=== PATIENT | female | born 1960 | race Caucasian/White ===

== ENCOUNTER 2020-02-26 10:23 | Outpatient (CLI) | payer BC, SELFPAY ==
--- NOTE | ~2020-02-26 | MM_ITS ---
EXAMINATION: MM screening [facility] BI w sammy HISTORY: Screening mammogram TECHNIQUE: Craniocaudal and mediolateral oblique 3-D tomosynthesis images were obtained and synthetic 2-D images were generated. CAD analysis was submitted and interpreted. COMPARISON: 12/31/2018, 12/04/2017, 11/25/2016 BREAST PARENCHYMAL COMPOSITION: The breasts are extremely dense, which lowers the sensitivity of mamm ography. FINDINGS: RIGHT BREAST: Asymmetry is present in the subareolar aspect of the lower breast on the mediolateral o blique view. LEFT BREAST: There is no evidence of suspicious mass, calcification, or architectural distortion to s uggest malignancy. There has been no significant interval change. IMPRESSION: 1. Right breast asymmetry on the mediolateral oblique view. 2. Additional mammographic views and possible breast ultrasound are recommended. BI-RADS Category 0: Incomplete: Needs additional imaging evaluation. Reviewed, dictated and finalized at location A. IMPRESSION: 1. Right breast asymmetry on the mediolateral oblique view. 2. Additional mammographic views and possible breast ultrasound are recommended . BI-RADS Category 0: Incomplete: Needs additional imaging evaluation.
== END 2020-02-26 10:24 | disposition home or self-care (01) ==
LOC: ANHIMG 10:26
PROVIDERS: PCP Family Medicine; Visit Provider Nurse Practitioner Obstetrics & Gynecology
DX: Z12.31 Encounter for screening mammogram for malignant neoplasm of breast (principal); R92.8 Other abnormal and inconclusive findings on diagnostic imaging of breast
CPT/HCPCS: 77063; 77067

== ENCOUNTER → 2020-03-11 08:31 | Outpatient (CLI) | payer BC, SELFPAY ==
--- NOTE | ~2020-03-11 | MM_ITS ---
EXAMINATION: MM diagnostic mammo unilat RT HISTORY: Right breast subareolar mammographic asymmetry reported on screening MLO view of 02/26/2020 TECHNIQUE: Additional 3-D tomosynthesis images of the right breast were performed and synthetic 2-D i mages were generated. CAD analysis was submitted and interpreted. COMPARISON: 02/26/2020 bilateral digital screening mammogram FINDINGS: No reproducible mass or architectural distortion is evident in the area in question in the inferior subareolar area of the right breast as questioned on 02/26/2020 screening mammogram. There ar e scattered benign calcifications. IMPRESSION: 1. No mammographic evidence of malignancy 2. Routine mammographic screening is recommended 3. Due to the dense breast stroma, small masses may be obscured. Ultrasound may be of supplemental sc reening benefit depending upon physical examination and physician and patient preference. BI-RADS Category 2: Benign finding(s). Reviewed, dictated and finalized at location A. IMPRESSION: 1. No mammographic evidence of malignancy 2. Routine mammographic screening is recommended 3. Due to the dense breast stroma, small masses may be obscured. Ultrasound may be of supplemental screening benefit depending upon physical examination and p hysician and patient preference. BI-RADS Category 2: Benign finding(s).
== END ==
PROVIDERS: PCP Family Medicine; Visit Provider Nurse Practitioner Obstetrics & Gynecology
DX: R92.8 Other abnormal and inconclusive findings on diagnostic imaging of breast (principal)
CPT/HCPCS: 77065

== ENCOUNTER → 2020-03-13 13:28 | Outpatient (CLI) | payer BC, SELFPAY ==
--- NOTE | ~2020-03-13 | US_ITS ---
US breast RT complete DATE: 03/13/2020 13:47 INDICATION: Dense breast stroma on mammography TECHNIQUE: High-resolution ultrasound imaging COMPARISON: 03/11/2020 diagnostic right mammogram 02/26/2020, 12/31/2018, 12/04/2017 bilateral digital screening mammogram examinations FINDINGS: No suspicious mass, shadowing or other significant sonographic abnormality is detected. IMPRESSION: BI-RADS Category 1: Negative Recommendation: Routine mammographic screening and possible periodic screening ultrasound examination s as clinically appropriate Reviewed, dictated and finalized at Location A. Reviewed, dictated and finalized at location A. IMPRESSION: BI-RADS Category 1: Negative Recommendation: Routine mammographic screening and possible periodic screening ultrasound examinations as clinically appropriate
== END ==
PROVIDERS: Visit Provider Nurse Practitioner Obstetrics & Gynecology
DX: R92.8 Other abnormal and inconclusive findings on diagnostic imaging of breast (principal)
CPT/HCPCS: 76641

== ENCOUNTER → 2021-03-19 16:27 | Outpatient (CLI) | payer BC, SELFPAY ==
--- NOTE | ~2021-03-19 | MM_ITS ---
EXAMINATION: MM screening [facility] BI w sammy HISTORY: Screening TECHNIQUE: Craniocaudal and mediolateral oblique 3-D tomosynthesis images were obtained and synthetic 2-D images were generated. CAD analysis was submitted and interpreted. COMPARISON: Comparison to multiple prior studies sequentially, with oldest reviewed study dated 2016. BREAST PARENCHYMAL COMPOSITION: The breasts are extremely dense, which lowers the sensitivity of mamm ography. FINDINGS: There is no evidence of suspicious mass, calcification, or architectural distortion to sugg est malignancy in either breast. There has been no suspicious interval change. IMPRESSION: 1. No mammographic evidence of malignancy. 2. Recommend routine screening mammography in one year. BI-RADS Category 1: Negative Reviewed, dictated and finalized at location A.
== END ==
PROVIDERS: PCP Internal Medicine; Visit Provider Nurse Practitioner Obstetrics & Gynecology
DX: Z12.31 Encounter for screening mammogram for malignant neoplasm of breast (principal)
CPT/HCPCS: 77063; 77067

== ENCOUNTER 2022-04-02 14:35 | Outpatient (CLI) | payer BC, SELFPAY ==
--- NOTE | ~2022-04-02 | MM_ITS ---
EXAMINATION: MM screening [facility] BI w sammy HISTORY: Screening mammogram TECHNIQUE: Craniocaudal and mediolateral oblique 3-D tomosynthesis images were obtained and synthetic 2-D images were generated. CAD analysis was submitted and interpreted. COMPARISON: 03/2021 bilateral screening mammogram 03/11/2020 diagnostic right mammogram and complete right breast ultrasound 02/26/2020, 12/31/2018 bilateral screening mammogram examinations BREAST PARENCHYMAL COMPOSITION: The breasts are extremely dense, which lowers the sensitivity of mamm ography. FINDINGS: Again noted are scattered bilateral benign appearing rounded and punctate microcalcificatio ns. There is no evidence of suspicious mass, calcification, or architectural distortion to suggest ma lignancy in either breast. There has been no suspicious interval change. IMPRESSION: 1. No mammographic evidence of malignancy. 2. Recommend routine screening mammography in one year. BI-RADS Category 2: Benign finding(s). Reviewed, dictated and finalized at location A.
== END 2022-04-02 14:36 | disposition home or self-care (01) ==
PROVIDERS: PCP Internal Medicine; Visit Provider Nurse Practitioner Obstetrics & Gynecology
DX: Z12.31 Encounter for screening mammogram for malignant neoplasm of breast (principal)
CPT/HCPCS: 77063; 77067

== ENCOUNTER 2023-03-19 10:29 | Outpatient (CLI) | payer BC, SELFPAY ==
--- NOTE | 2023-03-22 17:02 | WPDHOLTEREM ---
Holter/Event Monitor Holter/Event Monitor Date of procedure: 03/19/23 Holter/Event Procedure: 48 Hr Holter Monitor Indications: Palpitations Conclusion: 1. 48 hour holter monitor on 03/19/23. 2. Underlying rhythm is sinus rhythm. HR range 44-122 bpm; average HR 72 bpm. HR at 44 bpm was at 01:06. 3. There are 12 premature supraventricular complexes and 8 supraventricular couplets. No supraventricular tachycardia. 4. No premature ventricular complexes. No ventricular tachycardia. 5. No sinoatrial or atrioventricular blocks. No significant pauses greater than 2 seconds. 6. No symptoms available for correlation.
== END 2023-03-19 10:30 | disposition home or self-care (01) ==
PROVIDERS: PCP Family Medicine; Visit Provider Nurse Practitioner Family
DX: R00.2 Palpitations (principal)
CPT/HCPCS: 93225; 93226

== ENCOUNTER 2023-06-26 11:33 | Outpatient (CLI) | payer BC, SELFPAY ==
--- NOTE | ~2023-06-26 | MM_ITS ---
EXAMINATION: MM screening [facility] BI w sammy HISTORY: Screening mammogram TECHNIQUE: Craniocaudal and mediolateral oblique 3-D tomosynthesis images were obtained and synthetic 2-D images were generated. CAD analysis was submitted and interpreted. COMPARISON: 04/02/2022, 03/2021 bilateral screening mammogram examinations 03/13/2020 complete right breast ultrasound 03/11/2020 diagnostic right mammogram 02/26/2020 bilateral screening mammogram BREAST PARENCHYMAL COMPOSITION: The breasts are extremely dense, which lowers the sensitivity of mamm ography. FINDINGS: There are scattered bilateral benign appearing calcifications. There is no evidence of susp icious mass, calcification, or architectural distortion to suggest malignancy in either breast. There has been no suspicious interval change. IMPRESSION: 1. No mammographic evidence of malignancy. 2. Recommend routine screening mammography in one year. BI-RADS Category 2: Benign finding(s). Reviewed, dictated and finalized at location B. 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
== END 2023-06-26 11:34 | disposition home or self-care (01) ==
PROVIDERS: PCP Family Medicine; Visit Provider Nurse Practitioner Family
DX: Z12.31 Encounter for screening mammogram for malignant neoplasm of breast (principal)
CPT/HCPCS: 77063; 77067

== ENCOUNTER 2024-07-12 14:15 | Outpatient (CLI) | payer MEDICARE, OTHER, SELFPAY ==
--- NOTE | ~2024-07-12 | MM_ITS ---
EXAMINATION: MM screening [facility] BI w sammy HISTORY: Screening TECHNIQUE: Craniocaudal and mediolateral oblique 3-D tomosynthesis images were obtained and synthetic 2-D images were generated. CAD analysis was submitted and interpreted. COMPARISON: Comparison to multiple prior studies sequentially, with oldest reviewed study dated 12/31. BREAST PARENCHYMAL COMPOSITION: Dense: The breasts are extremely dense, which lowers the sensitivity of mammography. FINDINGS: There is no evidence of suspicious mass, calcification, or architectural distortion to sugg est malignancy in either breast. There has been no suspicious interval change. IMPRESSION: 1. No mammographic evidence of malignancy. 2. Recommend routine screening mammography in one year. BI-RADS Category 1: Negative Reviewed, dictated and finalized at location B. ICATIONS ARCHITECT
== END 2024-07-12 14:16 | disposition home or self-care (01) ==
LOC: ANHIMG 14:18
PROVIDERS: PCP Nurse Practitioner Family; Visit Provider Nurse Practitioner Family
DX: Z12.31 Encounter for screening mammogram for malignant neoplasm of breast (principal)
CPT/HCPCS: 77063; 77067

== ENCOUNTER 2024-09-05 08:50 | Outpatient (CLI) | payer MEDICARE, OTHER, SELFPAY ==
--- NOTE | ~2024-09-05 | XR_ITS ---
EXAMINATION: XR hip RT min 2V DATE: 09/05/2024 09:17 INDICATION: Right hip pain. Fall. TECHNIQUE: 2 views of right hip were obtained. COMPARISON: None. FINDINGS: Alignment is normal. No fracture. There is severe lumbar facet joint osteoarthritis. There is mild right hip osteoarthritis with small loose body. IMPRESSION: 1. Mild right hip osteoarthritis with small loose body. Reviewed, dictated and finalized at location B. 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
--- NOTE | ~2024-09-05 | XR_ITS ---
Lumbosacral Spine: AP and lateral views Clinical History: Pain Findings: The normal lordotic curve is maintained. No fracture or sublocation seen. There is mild to moderate degenerative disc narrowing at L1-L2. There is severe facet arthropathy throughout the lumba r spine. The sacroiliac joints are normally outlined. Impression: Severe facet arthropathy throughout the lumbar spine. Reviewed, dictated and finalized at location . 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
== END 2024-09-05 08:51 | disposition home or self-care (01) ==
LOC: MICIMG 08:52
PROVIDERS: PCP Nurse Practitioner Family; Visit Provider Nurse Practitioner Family
DX: M16.11 Unilateral primary osteoarthritis, right hip (principal); M24.051 Loose body in right hip; W19.XXXA Unspecified fall, initial encounter
CPT/HCPCS: 72100; 73502

== ENCOUNTER 2024-12-11 09:37 | Emergency (ER) | payer MEDICARE, OTHER, SELFPAY ==
--- NOTE | ~2024-12-11 | XR_ITS ---
XR ankle RT min 3V Ordering provider: Andres Shukla MD History: . trauma, right ankle pain, lateral swelling . Comparison: None. FINDINGS: BONES: No acute fracture or dislocation. JOINT SPACES: Normal. SOFT TISSUES: Soft tissue swelling over the lateral malleolus. IMPRESSION: No acute osseous abnormality of the right ankle. Reviewed, dictated and finalized at location A.
--- NOTE | ~2024-12-11 | XR_ITS ---
XR toe 1st LT min 2V Ordering provider: Andres Shukla MD History: . trauma, swelling, pain . Comparison: None. FINDINGS: BONES: Fracture at the base of the proximal phalanx of the left big toe is noted medially. JOINT SPACES: Osteoarthritic changes of the first metatarsophalangeal joint. SOFT TISSUES: Soft tissue swelling is seen at the area of the metatarsophalangeal joint. IMPRESSION: Chip fracture at the base of the proximal phalanx of the left big toe. Reviewed, dictated and finalized at location A.
[2024-12-11 09:42] VITALS: BP 104/65; PULSE 72; RESP 18; TEMP 36.6; O2SAT 100
--- OUTSIDE RECORDS SUMMARY | 2024-12-11 10:31 | XMS_ITS | Data Portability ---
Author Organization [place] [facility],, Mariely lopez Address [address] [place] [address] Assessment No assessment recorded. Plan of Treatment Reminders Order Date Submit Date Provider Last Modified By Organization Details Last Modified Time Details Appointments None recorde d. Lab allergy test, skin 2017 018 roge [facility], [address], [place], [address], 13:00:18 Referral None recorde d. Procedures None recorde d. Surgeries None recorde d. Imaging None recorde d. Medication Orders None recorde d. Patient TargetsNo targets recorded. Patient Instructions Encounter Date Encounter Id Patient Instructions Last Modified By Organization Details Last Modified Time 07/02/2018 [id number] rhinitis: care instructions [email or web address] Not available 07/02/2018 11:16:31 . [email or web address] Not available 11:16:30 07/30/2018 [id number] rhinitis: care instructions [email or web address] Not available 07/30/2018 14:18:26 Reason for Referral None Reported. Results Created Date Observation Date Name Description Value Unit Range Abnormal Flag Note LastModifiedBy Organization Detail LastModifiedTime 07/02/20 18 07/02/2018 aller gy test, skin Mites positi ve Not Available [facility] [address], [place], [address], 07/02/2018 09:50:42 07/02/20 18 07/02/2018 aller gy test, skin Mold positi ve Not Available [facility] [address], [place], [address], 07/02/2018 09:50:42 07/02/20 18 07/02/2018 aller gy test, skin Cat positi ve Not Available [facility] [address], [place], [address], 07/02/2018 09:50:42 07/02/20 18 07/02/2018 aller gy test, skin Dog positi ve Not Available [facility] [address], [place], [address], 07/02/2018 09:50:42 07/02/20 18 07/02/2018 aller gy test, skin Trees positi ve Not Available [facility] [address], [place], [address], 07/02/2018 09:50:42 07/02/20 18 07/02/2018 aller gy test, skin Grass positi ve Not Available [facility] [address], [place], [address], 07/02/2018 09:50:42 07/02/20 18 07/02/2018 aller gy test, skin Ragweed negati ve Not Available [facility] [address], [place], [address], 07/02/2018 09:50:42 Result Notes None recorded. Problems Name Problem SNOMED Code Status Onset Date Resolution Date Notes Provider Name and Address Organization Details Recorded Time Osteoporosis 12800959 Active 2017 Hood baires MD [address], [place], [address], [place] [facility], 8 09:56:02 Chronic rhinitis 10338316 Active 2017 Hood baires MD [address], [place], [address], [place] [facility], 8 09:56:05 Problem Notes None recorded. Medical Equipment None Reported. Allergies No known drug allergies Medications Name Sig Start Date Stop Date Status Note LastModified by Organization Details LastModified Time alprazolam 0.5 mg tablet active Not Available Not Available No t Available trazodone 100 mg tablet active Not Available Not Available No t Available Vitamin D2 1,250 mcg (50,000 unit) capsule active Not Available Not Available Not Available fluticasone propionate 50 mcg/actuation nasal spray,suspensi on active Not Available Not Available Not Available risedronate 150 mg tablet 2017 completed Not Available Not Available Not Available Forteo 20 mcg/dose (560 mcg/2.24 mL) subcutaneous pen injector 2017 completed Not Available Not Available Not Available Clenpiq 10 mg-3.5 gram-12 gram/160 mL oral solution active Not Available Not Availabl e Not Available Vitals Date Recorded Body height Body mass index (BMI) Body weight Body temperature Systolic blood pressure Diastolic blood pressure Provider Name and Address Organization Details Last Updated DateTime 8 158.75 cm 16.6 kg/m2 88435.5 g 98.1 [degF] 98 mm[Hg] 62 mm[Hg] shira luna [place] [facility], 8 09:47:49 Date Recorded Body height Body mass index (BMI) Body weight Body temperature Systolic blood pressure Diastolic blood pressure Provider Name and Address Organization Details Last Updated DateTime 8 158.75 cm 17.1 kg/m2 93213.2 8 g 98 [degF] 100 mm[Hg] 62 mm[Hg] shira luna [place] [facility], 8 13:03:28 Social History Question Answer Notes LastModified by Organizat ion Details LastModified Time Tobacco Smoking Status Former Smoker shira dickerson [place] [facility], 07/02/2018 09:48:06 What Was The Date Of Your Most Recent Tobacco Screening? 07/02/2018 Information n ot available 03/09/2019 How Many Years Have You Smoked Tobacco? 5 [email or web address] Information not available 07/02/2018 Sex: Unknown Functional Status None recorded. Mental Status None recorded. Family History Nothing Reported. Medical History Condition Response Coronary Artery Disease N Gout N Kidney Stones N Hyperthyroidism N Hypothyroidism N Depression N COPD N Stress N Anxiety Disorder N Diabetes N Arthritis N Tuberculosis N Cancer N Stroke N Diverticulitis N Asthma N Allergies N GERD/Reflux N High Cholesterol N Liver Disease N Heart Disease N Pulmonary Embolism N Fibromyalgia N Hypertension N Osteoporosis N Kidney Disease N Gynecological HistoryNo gynecological history recorded. Obstetrics History GPAL:G 0 P 0 0 0 0 Past Encounters Encounter ID Performer Location Encounter Start Date Encounter Closed Date Diagnosis/Indication Diagnosis SNOMED-CT Code Diagnosis ICD10 Code Diagnosis Note [id number] Hood treviño MD OFFICE [address] [place] [phone] 07/02/2018 09:35:11 07/02/2018 12:07:33 Chronic rhinitis 51365830 J31.0 The patient's symptoms are compatible with allergic rhinitis. Skin testing confirmed the allergic nature of this condition. The three fundamenta l therapeuti c strategies were discussed with the patient. These include allergen avoidance, pharmacolo gic interventi on with intranasal corticoste roids, antihistam jenna, and potentiall y intranasal antihistam jenna. Finally allergy immunother apy was discussed. The patient was started on {{ Nasacort and Xyzal# Riley nase Coldstream ex Rhinoco rt Nasacort}} .will return in a month to evaluate whether she should start on AI. [id number] Hood treviño MD OFFICE [address] [place] [id number] 07/30/2018 12:32:06 07/30/2018 13:24:18 Chronic rhinitis 50408922 J31.0 The patient will begin on allergy immunother apy. The benefits and potential side effects were explained. Patient was given a consent form to fill out. They will begin on the IT in the near future. Health Concerns Section Related Observation LastModified by Organization Detai ls LastModified Time None Recorded Concern Status LastModified by Organization Details LastModified Time None Recorded Advance Directives Directive None Recorded Payers Encounter Date Sequence Insurance Name Policy Number Policy Hollingsworth Covered Member ID Hollingsworth Member ID Guarantor Name 07/02/2018 1 [facility] [id number] Barb Piper [id number] Barb Piper 07/30/2018 1 [facility] [id number] Barb Piper [id number] Barb Piper Notes Date Note Type Note Provider Name and Address Organization Details Recorded Time 07/02/2018 text/html Barb is a delightful 57-year-old woman who comes in with a long history of sinus congestion and pressure. This is perennial in nature and does not appear to have any seasonal exacerbations. She has tried some antihistamines and short courses of nasal steroids with minimal symptoms. She had been allergy tested in the past but was never placed on allergy immunotherapy. She had a CT of her sinuses which has been negative. She comes in wondering what she can do. She has not had any problems with recurring sinus infections. MD [address], [place], [address], [place] [facility], 07/02/2018 13:00:49 07/30/2018 text/html Barb comes in f or follow-up of her allergic rhinitis. She has had a mediocre response to the Nasacort and Xyzal. In fact is Eisel made her very sleepy. She would like to begin on allergy immunotherapy. MD [address], [place], [address], [place] [facility], 07/30/2018 14:18:53 OBGyn Episode No OBEpisode recorded.
--- OUTSIDE RECORDS SUMMARY | 2024-12-11 10:31 | XMS_ITS | Referral Summary ---
Author Organization [facility] Address [address] [place] [address] Care Team Providers Care Industrial Engineering Name Role Phone Hazel Blanc NP Primary Care Provider [phone] Encounters Date Type Department Care Team Description 09/18/2024 10:00 AM TAX ATTORNEY Infusion [facility] Injection Therapy [address] [facility] 5th [place] [address] [place] [address] Age-related osteoporosis without current pathological fracture (Primary Dx) from Last 3 Months Allergies Active Allergy Reactions Criticality Noted Date Comments Clindamycin Diarrhea Low 07/04/2019 Succinylcholine Other (See comments) Low 05/07/2020 Medications ALPRAZolam (XANAX) 0.5 mg tablet 10/12/2018 Active traZODone (DESYREL) 100 mg tablet 10/12/2018 Active calcium carbonate-vitam in D3 (CALTRATE 600 + D) 1500 mg (600 mg elemental) -400 units per tablet Take 1 tablet by mouth daily 600mg+D 800 units dailly Active fexofenadine (ERIC) 180 mg tablet Take 1 tablet (180 mg total) by mouth daily Active denosumab (PROLIA) 60 mg/mL syringe Inject 1 mL (60 mg total) under the skin every 6 (six) months Active ergocalciferol (VITAMIN D) 50,000 unit capsuleIndicati ons:History of vitamin D deficiency TAKE ONE CAPSULE BY MOUTH EVERY 30 DAYS 12 capsule 10/08/2023 Active Active Problems Problem Noted Date Diagnosed Date Chronic rhinitis 07/02/2018 Osteoporosis 07/02/2018 Social History Tobacco Use Types Packs/Day Years Used Date Smoking Tobacco: Former Smokeless Tobacco: Never Alcohol Use Standard Drinks/Week Comments Never 0 (1 standard drink = 0.6 oz pur e alcohol) AUDIT-C Answer Date Recorded Frequency of Alcohol Consumption Never 09/11/2019 Average Number of Drinks Not on file 020 Frequency of Binge Drinking Not on file 08/17 Comments Unknown Sex and Gender Information Value Date Recorded Sex Assigned at Not on file Legal Sex Female 11:53 AM TAX ATTORNEY Gender Identity Female 06/13/2021 4:46 PM CDT Sexual Orientation Straight 02/17/2022 10 :07 AM CDT Last Filed Vital Signs Vital Sign Reading Time Taken Comments Blood Pressure 103/69 05/09/2019 9:45 AM CDT Pulse 71 05/09/2019 9:45 AM CDT Temperature 36.9 C (98.4 F) 10/25/2018 11:16 AM CDT Respiratory Rate - - Oxygen Saturation - - Inhaled Oxygen Concentration - - Weight 38.6 kg (85 lb) 08/02/2024 10:48 AM TAX ATTORNEY Height 158.1 cm (5' 2.25 ) 08/02/2024 10:[address] Body Mass Index 15.42 08/02/2024 10:48 AM TAX ATTORNEY Plan of Treatment Not on file Procedures Procedure Name Priority Date/Time Associated Diagnosis Comments DEXA TBS AXIAL SKELETON BONE DENSITY 1 OR MORE SITES Schedule Routine, Read Routine (OP Routine) 08/02/2024 10:47 AM TAX ATTORNEY History of vitamin D deficiency from Last 3 Months or Most Recently Relevant to Health Maintenance Results * Dexa TBS Axial Skeleton Bone Density 1 or more sites (08/02/2024 10:47 AM TAX ATTORNEY) Anatomical Region Laterality Modality Wrist, Body N/A Radiographic Viridiana ging Narrative 08/02/2024 4:42 PM TAX ATTORNEY Patient Name: Barb Piper Date of : 1960 Date of scan: 08/02/2024 Bone mineral density was performed on a [employer] Discovery Densitometer. Based on machine cross-calibration and precision studies the least significant changes of this densitometer is 0.024 g/cm2 at the spine, 0.020 g/cm2 at the total proximal femur, and 0.014g/cm2 at the forearm. HISTORY: This is a 63 y.o. postmenopausal female with a history of osteoporosis. She reports that she has quit smoking. She has never used smokeless tobacco. Currently on treatment with calcium, vitamin D, and denosumab (Prolia) and previously treated with risedronate (Actonel) and teriparatide (Forteo). INDICATIONS: Menopause status, treatment monitoring, and history of osteoporosis. FINDINGS: BONE MINERAL DENSITY OF THE LUMBAR SPINE Bone Mineral Density (BMD) of the lumbar spine was measured from L1-L4 and the average density was calculated to be 1.225 gm/cm2. This corresponds to a T-score (standard deviations from the mean of young adults) of 1.6. When compared to the previous study of 07/23/2023 there has been a -0.026 gm/cm (-2.1%) decrease in bone density that is considered significant. BONE MINERAL DENSITY OF THE PROXIMAL FEMUR Bone Mineral Density (BMD) of the left hip total was found to be 0.662 gm/cm2. This corresponds to a T-score standard deviations from the mean of young adults of -2.3. Femoral neck is 0.571 gm/cm2 with a T-score (standard deviations from the mean of young adults) of -2.5. When compared to the previous study of 07/23/2023 there has been a -0.024 gm/cm (-3.4%) decrease in bone density that is considered significant. BONE MINERAL DENSITY OF THE FOREARM Bone Mineral density (BMD) of the left proximal 1/3 of the radius measures 0.622 gm/cm2. This corresponds to a T-score (standard deviations from the mean of young adults) of -1.2. When compared to the previous study of 07/23/2023 there has been no significant changes in bone density. A forearm bone density study was performed in addition to the routine study due to the need to provide a comparison to the previous exam. SUMMARY: Bone mineral density shows evidence of osteoporosis and marked increase risk of fracture. There has been a significant decrease in bone density since previous measurement. The lumbar spine Trabecular Bone Score is 1.415 which suggests normal bone microarchitecture, compared to the general population. Final decisions regarding diagnostic or therapeutic recommendations should include BMD, TBS, additional clinical risk factors as well the clinical context of the patient. Please see attached TBS results for further details. ADDITIONAL COMMENTS: Postmenopausal Women and Men Over 50: Diagnostic criteria: Osteoporosis: BMD at or below -2.5 T-score; Osteopenia (low bone mass): BMD between -1.0 and -2.5 T-score. If the patient has a history of a fragility fracture, a fracture that occurred with trauma equivalent to a fall from a standing position or less, then the diagnosis is osteoporosis regardless of bone density. The history and data sections of the bone mineral density scan were prepared by Carine Day)([facility])who is accredited by the International Society of Clinical Densitometry. The overall patient assessment and scan interpretation were performed by Maribeth Garcia M.D. who is certified by the International Society of Clinical Densitometry. [id number] Maribeth Garcia MD IM DXA PROCEDURES Final Resu lt from Last 3 Months or Most Recently Relevant to Health Maintenance Insurance MEDICARE [facility] [place] [address] [facility] [place] MEDICARE [employer] [facility] [place] Care Teams Industrial Engineering Relationship Specialty Start Date End Date Hazel Blanc NP [address] [place] [address] PCP - General Nurse Practitioner 08/02/24
--- OUTSIDE RECORDS SUMMARY | 2024-12-11 10:31 | XMS_ITS | Encounter Summary ---
Author Organization [facility] Address [address] [place] [address] Phone Care Team Providers Care Panel Installer Name Role Phone Jared Amezcua MD Primary Care Provider [phone] Monie Finley MD Primary Care Provider [phone] Moises Blunt DO Primary Care Provider [phone] Hazel Blanc NP Primary Care Provider [phone] Encounter Details Date Type Department Care Team (Late st Contact Info) Description 06/15/2019 Treatment [facility] [address] [facility] [address] [place] [address] Monie Finley MD [address] [place] [address] Osteoporosis, unspecified osteoporosis type, unspecified pathological fracture presence (Primary Dx) Social History Tobacco Use Types Packs/Day Years Used Date Smoking Tobacco: Former Smokeless Tobacco: Never Alcohol Use Standard Drinks/Week Comments Yes 0 (1 standard drink = 0.6 oz pur e alcohol) Comments Unknown Sex and Gender Information Value Date Recorded Sex Assigned at Not on file Legal Sex Female 11:53 AM ACID CONDENSER Gender Identity Female 06/13/2021 4:46 PM CDT Sexual Orientation Straight 02/17/2022 10 :07 AM CDT documented as of this encounter Plan of Treatment Not on file documented as of this encounter Visit Diagnoses Diagnosis Osteoporosis, unspecified osteoporosis type, unspecified pathological fracture presence- Primary documented in this encounter Orders Appointment Requests Count Last Ordered Date Fi rst Ordered Date INFUSION APPT REQUEST 30 MIN 1 07/04/2019 documented in this encounter Care Teams Panel Installer Relationship Specialty Start Date End Date Jared Amezcua MD [address] [place] [address] PCP - General Family Medicine 06/30/18 07/03/19 Monie Finley MD [address] [place] [address] PCP - General 07/04/19 07/02/22 Moises Blunt DO [address] [place] [address] PCP - General Internal Medicine 07/03/22 08/01/24 Hazel Blanc NP [address] [facility] [address] [facility] [address] [place] [address] PCP - General Nurse Practitioner 08/02/24 documented as of this encounter
--- OUTSIDE RECORDS SUMMARY | 2024-12-11 10:31 | XMS_ITS | Clinical Summary ---
Author Organization [facility] Address [address] [place] [address] Care Team Providers Care Landscape Designer Name Role Phone Hazel Blanc NP Primary Care Provider Allergies Active Allergy Reactions Criticality Noted Date [...] Diagnosed Date Chronic rhinitis 07/02/2018 Osteoporosis 07/02/2018 Encounters Date Type Department Care Team Description 09/18/2024 10:00 AM DRUPAL PROGRAMMER Infusion [facility] Injection Therapy [address] [facility] 5th [place] [address] [place] [address] Age-related osteoporosis without current pathological fracture (Primary Dx) from Last 3 Months Family History Medical History Relation Name Comments No Known Problems Mother Hip fracture Neg Hx Osteoporosis Neg Hx Relation Name Status Comments Mother Social History Tobacco Use Types Packs/Day Years [...] on file Legal Sex Female 11:53 AM DRUPAL PROGRAMMER Gender Identity Female 06/13/2021 4:46 PM CDT Sexual Orientation Straight 02/17/2022 10 :07 AM CDT Obstetrics History Last Filed Vital Signs Vital Sign Reading Time Taken Comments Blood Pressure 103/69 05/09/2019 9:45 AM CDT Pulse 71 05/09/2019 9:45 AM CDT Temperature 36.9 C (98.4 F) 10/25/2018 11:16 AM CDT Respiratory Rate - - Oxygen Saturation - - Inhaled Oxygen Concentration - - Weight 38.6 kg (85 lb) 08/02/2024 10:48 AM DRUPAL PROGRAMMER Height 158.1 cm (5' 2.25 ) 08/02/2024 10:[address] Body Mass Index 15.42 08/02/2024 10:48 AM DRUPAL PROGRAMMER Plan of Treatment Health Maintenance Due Date Last Done Comments Colon Cancer Screening-Colonoscopy 1960 Depression Screening 1960 Fall Risk Assessment 1960 Hepatitis C Screening 1960 DTaP/Tdap/Td Vaccine (1 - Tdap) 1969 Hepatitis B Screening 1976 Pneumococcal vaccine 65+ (1 of 1 - PCV) 2008 Zoster Vaccine (1 of 2) 2008 Breast Cancer Screening-Mammogram 04/02/2023 04/02/2022, 03/20/2021, 02/26/2020 Well Visit 65+ 2023 Influenza Vaccine (Season Ended) 2025 05/25/20 19 Osteoporosis Screening-Bone Density Scan 08/02/2026 08/02/2024, 07/23/2023, 07/03/2022, Additional history exists Procedures Procedure Name Priority Date/Time Associated Diagnosis Comments DEXA TBS AXIAL SKELETON BONE DENSITY 1 OR MORE SITES Schedule Routine, Read Routine (OP Routine) 08/02/2024 10:47 AM DRUPAL PROGRAMMER History of vitamin D deficiency from Last 3 Months or Most Recently Relevant to Health Maintenance Results * Dexa TBS Axial Skeleton Bone Density 1 or more sites (08/02/2024 10:47 AM DRUPAL PROGRAMMER) Anatomical Region Laterality Modality Wrist, Body N/A Radiographic Viridiana ging Narrative 08/02/2024 4:42 PM DRUPAL PROGRAMMER Patient Name: Barb Piper Date of : 1960 Date of scan: 08/02/2024 Bone mineral density was performed on a [employer] Discovery Densitometer. Based on machine cross-calibration and [...] mineral density scan were prepared by Carine Day)([facility])who is accredited by the International Society of Clinical Densitometry. The overall patient assessment and scan interpretation were performed by Maribeth Garcia M.D. who is certified by the International Society of Clinical Densitometry. [id number] Maribeth Garcia MD IMG DXA PROCEDURES Final Resu lt from Last 3 Months or Most Recently Relevant to Health Maintenance Insurance MEDICARE [facility] MEDICARE [facility] Care Teams Landscape Designer Relationship Specialty Start Date End Date Hazel Blanc NP [address] [place], [place] [id number] PCP - General Nurse Practitioner 08/02/24
--- OUTSIDE RECORDS SUMMARY | 2024-12-11 10:31 | XMS_ITS | Data Portability ---
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 Patient will come back in a year unless there are new symptoms. Not available 03/17/2021 11:25:26 04/08/2022 04/08/2022 Annual gynecological exam performed. Patient will come back in a year unless there are new symptoms. [email or web address] Not available 04/08/2022 12:22:52 05/17/2023 05/17/2023 Annual gynecological exam performed. Patient will come back in a year unless there are new symptoms. [email or web address] Not available 05/17/2023 12:36:57 06/05/2024 06/05/2024 Annual gynecological exam performed. Patient will come back in a year unless there are new symptoms. Not available 05/23/2024 16:31:21 Plan of Treatment Reminders Order Date Submit Date Provider Last Modified By Organization Details Last Modified Time Details Appointments None recorded. Lab pap, IG + HR HPV 2023 024 [facility] (Lab), [address], [place], [address], 14:09:03 Referral None recorded. Procedures None recorded. Surgeries None recorded. Imaging MAMMO, screening, digital, bilateral [address] [facility], [address], [place], [address], 4 04:01:11 MAMMO, screening, digital, bilateral [email or web address] [facility] [address] [facility], [address], [place], [address], 4 15:03:27 Medication Orders None recorded. Patient TargetsNo targets recorded. Patient InstructionsNo instructions recorded. Reason for Referral None Reported. 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 Locat ion: [place] Patho logy Recei stefania: 03/17 2352 First Scree n: Maria Guadalupe Randall, CT Speci men: Scree gerald Pap - Image d, Cervi x STATE MENT OF ADEQU ACY: Satis facto ry for evalu ation Trans forma tion zone compo nent prese nt FINAL DIAGN OSIS: Negat reagan for Intra epith elial Lesio n or Rj brooks (NIL) Atrop hic vivek bowden rn Elect laxmi foss baron d by Maria Guadalupe Randall, CT on 021 at 7:42 PM ----- ----- ----- ----- ----- ----- ----- ----- ----- ----- ----- ----- ----- ----- ----- ----- ----- ---- HPV RESUL TS: HPV mRNA E6/E7 : No HPV mRNA Detec genesis NOTE: This high risk HPV mRNA assay detec ts fourt een high- risk HPV types (16, 18, 31, 33, 35, 39, 45, 51, 52, 56, 58, 59, 66, 68) witho ut diffe renti ation . CHART ABLE COMME NT: Note: This speci men was revie wed by a Cytot echno logis t and/o r Patho logis t (as indic ated in this repor t) after evalu ation using the Thinp rep Imagi ng Syste m. CLINI ANYA INFOR MATIO N: Menst rual Statu s: LMP (if appli cable ): Clini anya Histo ry/Pr eviou s Pap: Type of Neopl hero (if appli cable ): Signi fican t Clini anya Findi ngs: Other Histo ry: Hormo randy (if appli cable ): PAP EDUCA WESLEY L NOTE: The Pap Test is a scree gerald test with an inher ent false negat reagan rate. Liqui d-bas e sampl ing may decre ase, but will not elimi carlos, false negat reagan resul ts. A negat reagan resul t does not precl ude the prese nce and/o r devel opmen t of disea se, since the prese nce of abnor mal cells in the sampl e depen ds on the locat ion of the lesio n and sampl ing techn ique. Moriah nued regul ar scree gerald is the best metho d of cance r preve ntion . If repor genesis cytol ogic findi ng do not corre late with physi anya and/o r histo rical findi ngs, furth er inves tigat ion is recom patricio d, as clini jermaine alexandra nted. 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 Atrop hy prese nt Elect laxmi foss baron d by Deya Hemphill, CT on 2021 at 2:09 PM ----- ----- ----- ----- ----- ----- ----- ----- ----- ----- ----- ----- ----- ----- ----- ----- ----- ---- HPV RESUL TS: HPV mRNA E6/E7 : No HPV mRNA Detec genesis NOTE: This high risk HPV mRNA assay detec ts fourt een high- risk HPV types (16, 18, 31, 33, 35, 39, 45, 51, 52, 56, 58, 59, 66, 68) witho ut diffe renti ation . COMME NT: Note: This speci men was revie wed by a Cytot echno logis t and/o r Patho logis t (as indic ated in this repor t) after evalu ation using the Thinp rep Imagi ng Syste m. CLINI ANYA INFOR MATIO N: Menst rual Statu s: LMP (if appli cable ): Clini anya Histo ry/Pr eviou s Pap: Type of Neopl hero (if appli cable ): Signi fican t Clini anya Findi ngs: Other Histo ry: Hormo randy (if appli cable ): PAP EDUCA WESLEY L NOTE: The Pap Test is a scree gerald test with an inher ent false negat reagan rate. Liqui d-bas ed sampl ing may decre ase, but will not elimi carlos, false negat reagan resul ts. A negat reagan resul t does not precl ude the prese nce and/o r devel opmen t of disea se, since the prese nce of abnor mal cells in the sampl e depen ds on the locat ion of the lesio n and sampl ing techn ique. Moriah nued regul ar scree gerald is the best metho d of cance r preve ntion . If repor genesis cytol ogic findi ng do not corre late with physi anya and/o r histo rical findi ngs, furth er inves tigat ion is recom patricio d, as clini jermaine warrflora nted. Not Available [facility] [address] [place], [address], 04/14/2022 15:12:36 05/17/20 23 05/17/2023 IMAGE GUIDE D PAP AND HPV REGAR DLESS image guided Pap, HPV regardless of Pap result SEE RESULT S BELOW CASE REPOR T: Cytol ogy Gynec ologi anya Repor t Case: [id number] Autho fadia cerna Provi ruy: Gwendolyn Johnson, DANI Colle cted: 05/17 1636 Order ing Locat ion: [place] Patho logy Recei stefania: 05/18 0703 First Scree n: DeLuc a, Hazel, CT Rescr een: Ronda Cuellar Speci men: Scree gerald Pap - Image d, Cervi x STATE MENT OF ADEQU ACY: Unsat isfac tory for evalu ation . FINAL DIAGN OSIS: Unsat isfac tory for evalu ation . Scant squam ous cellu larit y due to exces s inter ferin g blood . Elect laxmi foss baron d by Ronda Cuellar on 2022 at 1:15 PM ----- ----- ----- ----- ----- ----- ----- ----- ----- ----- ----- ----- ----- ----- ----- ----- ----- ---- HPV RESUL TS: HPV mRNA E6/E7 : No HPV mRNA Detec genesis NOTE: This high risk HPV mRNA assay detec ts fourt een high- risk HPV types (16, 18, 31, 33, 35, 39, 45, 51, 52, 56, 58, 59, 66, 68) witho ut diffe renti ation . COMME NT: This speci men was revie wed by a Cytot echno logis t and/o r Patho logis t (as indic ated in this repor t) after evalu ation using the Thinp rep Imagi ng Syste m. NOTE: A repro cessi ng proce dure was perfo rmed and the addit ional slide confi dalia the diagn [facility]sis of [facility] for evalu ation . CLINI ANYA INFOR MATIO N: Menst rual Statu s: LMP (if appli cable ): Clini anya Histo ry/Pr eviou s Pap: Type of Neopl hero (if appli cable ): Signi fican t Clini anya Findi ngs: Other Histo ry: Hormo randy (if appli cable ): Not Available [facility] (Lab) [address], [place], [address], 05/21/2023 14:19:27 05/26/20 23 05/26/2023 IMAGE GUIDE D PAP AND HPV REGAR DLESS image guided Pap, HPV regardless of Pap result SEE RESULT S BELOW CASE REPOR T: Cytol ogy Gynec ologi anya Repor t Case: [id number] Autho fadia cerna Provi ruy: Gwendolyn Johnson, DANI Hedrick cted: 05/26 1700 Order ing Locat ion: [place] Patho logy Recei stefania: 05/27 0017 First Scree n: Thompson cerda, Deidra ret, CT Speci men: Scree gerald Pap - Image d, Cervi x STATE MENT OF ADEQU ACY: Satis facto ry for evalu ation Trans forma tion zone compo nent canno t be defin itive ly ident ified due to the prese nce of atrop hy or other hormo nal ramirez es FINAL DIAGN OSIS: Negat reagan for Intra epith elial Lesio n or Rj cecilia (NIL) . Atrop hic cell kal mancera. Elect laxmi foss baron d by Deidra Serrato ret, CT on 05/28 at 12:44 PM ----- ----- ----- ----- ----- ----- ----- ----- ----- ----- ----- ----- ----- ----- ----- ----- ----- ---- HPV RESUL TS: HPV mRNA E6/E7 : No HPV mRNA Detec genesis NOTE: This high risk HPV mRNA assay detec ts fourt een high- risk HPV types (16, 18, 31, 33, 35, 39, 45, 51, 52, 56, 58, 59, 66, 68) witho ut diffe renti ation . COMME NT: This speci men was revie wed by a Cytot echno logis t and/o r Patho logis t (as indic ated in this repor t) after evalu ation using the Thinp rep Imagi ng Syste m. CLINI ANYA INFOR MATIO N: Menst rual Statu s: LMP (if appli cable ): Clini anya Histo ry/Pr eviou s Pap: Type of Neopl hero (if appli cable ): Signi fican t Clini anya Findi ngs: Other Histo ry: Hormo randy (if appli cable ): PAP EDUCA WESLEY L NOTE: The Pap Test is a scree gerald test with an inher ent false negat reagan rate. Liqui d-bas ed sampl ing may decre ase, but will not elimi carlos, false negat reagan resul ts. A negat reagan resul t does not precl ude the prese nce and/o r devel opmen t of disea se, since the prese nce of abnor mal cells in the sampl e depen ds on the locat ion of the lesio n and sampl ing techn ique. Moriah nued regul ar scree gerald is the best metho d of cance r preve ntion . If repor genesis cytol ogic findi ng do not corre late with physi ayna and/o r histo rical findi ngs, furth er inves tigat ion is recom patricio d, as clini jermaine alexandra nted. Not Available [facility] (Lab) [address], [place], [address], 05/28/2023 13:48:00 06/05/20 24 06/05/2024 IMAGE GUIDE D PAP AND HPV REGAR DLESS image guided Pap, HPV regardless of Pap result SEE RESULT S BELOW abnormal CASE REPOR T: Cytol ogy Gynec ologi anya Repor t Case: [id number] Autho fadia g Provi ruy: Dermo sierra, [place] , ANP, BUSINESS PROFESSOR Colle cted: 06/05 0942 Order ing Locat ion: [place] Patho logy Recei stefania: 06/06 0647 First Scree n: Johnathan Small, CT Patho logis t: Lori Franco MD Speci men: Shawn duarte Pap - Image d, Cervi x STATE MENT OF ADEQU ACY: Satis facto ry for evalu ation Endoc ervic al compo nent may not be disti nguis hed in cases of atrop hy. ----- ----- ----- ----- ----- ----- ----- ----- ----- ----- ----- ----- ----- ----- ----- ----- ----- ---- FINAL DIAGN OSIS: Epith elial Cell Abnor malit y, Squam ous Cell: Atypi anya Squam ous Cells of Undet ermin ed Jeffrey anderson (ASC- [place]). Atrop hy prese nt. Elect laxmi cheema by Lori Franco MD on 06/12 at 1:05 PM ----- ----- ----- ----- ----- ----- ----- ----- ----- ----- ----- ----- ----- ----- ----- ----- ----- ---- HPV RESUL TS: HPV mRNA E6/E7 : No HPV mRNA Detec genesis NOTE: This high risk HPV mRNA assay detec ts fourt een high- risk HPV types (16, 18, 31, 33, 35, 39, 45, 51, 52, 56, 58, 59, 66, 68) witho ut diffe renti ation . COMME NT: This speci men was revie wed by a Cytot echno logis t and/o r Patho logis t (as indic ated in this repor t) after evalu ation using the Thinp rep Imagi ng Syste m. CLINI ANYA INFOR MATIO N: Menst rual Statu s: LMP (if appli cable ): Clini anya Histo ry/Pr eviou s Pap: Type of Neopl hero (if appli cable ): Signi fican t Clini anya Findi ngs: Other Histo ry: Hormo randy (if appli cable ): FELIX HAYNES FOLLO W-UP: Follo w up as warra nted, based on curre nt guide lines and indiv idual patie nt consi derat ions. Not Available [facility] (Lab) [address], [place], [address], 06/12/2024 14:09:03 03/20/20 21 03/19/2021 shawn CAPELLAN bilat eral No observ ation record ed. ANY [facility] [address], [place], [address], 03/25/2021 16:30:09 04/02/20 22 04/02/2022 MAMMO , scree gerald, bilat eral No observ ation record ed. [facility] [address], [place], [address], 04/09/2022 07:58:47 Result Notes None recorded. 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 1 11:30:09 Atypical squamous cells of undeterm ined signific ance on cervical Papanico laou smear [id number] Completed 201403/17/2021 Atypical squamous cells of undeterm ined signific ance on cytologi c smear of cervix (ASC-US) ;Recorde d Elsewher e: No [facility] S ource: EHR Antique Furniture Restorer sofy: N Lupillo ce ID: 0001 Cortez lable Time: 08:45:00 AM [facility] 11:29:49 Screenin g for malignan t neoplasm of rectum Completed 201503/17/2021 Screenin g for malignan t neoplasm s of the rectum;R ecorded Elsewher e: No [facility]at [facility] Lupillo ce ID: 0001 Cortez lable Time: 08:30:00 AM [facility] 11:30:04 Postmeno pausal bleeding [id number] Completed 201503/17/2021 Postmeno pausal bleeding ;Recorde d Elsewher e: No Locat ion: [facility] N Lupillo ce ID: 0001 Cortez lable Time: 05:15:00 PM Elma Lux [facility] 11:30:01 Cyst of ovary [id number] Completed 201503/17/2021 Unspecif ied ovarian cyst, right side;Rec orded Elsewher e: No Locat ion: [facility] N Jaredti ce ID: 0001 Cortez lable Time: 03:00:00 PM [facility] 11:29:[address] Concept Completed 201803/17/2021 Encntr for general adult medical exam w/o abnormal findings ;Recorde d Elsewher e: No Locat ion: [facility] S ource: EHR Antique Furniture Restorer sofy: N Jaredti ce ID: 0001 Cortez lable Time: 03:30:00 PM Elma Lux [facility] 1 11:30:06 Abnormal cervical Papanico laou smear [id number] Completed 201103/17/2021 Other abnormal papanico laou smear of cervix and cervical HPV;Russel rded Elsewher e: No Locat ion: [facility] S ource: EHR Antique Furniture Restorer sofy: N Jaredti ce ID: 0001 Cortez lable Time: 04:30:00 PM Elma [facility] 1 11:29:42 Screenin g for malignan t neoplasm of cervix Completed 201503/17/2021 Encounte r for screenin g for malignan t neoplasm of cervix;R ecorded Elsewher e: No Locat ion: [facility] S ource: [facility] Antique Furniture Restorer sofy: N Lupillo ce ID: 0001 Cortez lable Time: 08:30:00 AM [facility] 1 11:30:02 Finding of body mass index [id number] Completed 201603/17/2021 Body mass index (BMI) 19 or less, adult;Re corded Elsewher e: No Locat ion: [facility] S ource: EHR Antique Furniture Restorer sofy: N Jaredti ce ID: 0001 Cortez lable Time: 04:30:00 PM Elma Lux [facility] 1 11:29:54 Low risk human papillom avirus deoxyrib onucleic acid detected in specimen from cervix [id number] Completed 201603/17/2021 Cervical low risk HPV DNA test positive ;Recorde d Elsewher e: No Locat ion: [facility] S ource: EHR Antique Furniture Restorer sofy: N Jaredti ce ID: 0001 Cortez lable Time: 04:30:00 PM Elma Lux [facility] 1 11:29:56 Lesion of ovary Completed 201503/17/2021 Other ovarian cyst, right side;Rec orded Elsewher e: No [facility] Antique Furniture Restorer sofy: N Practi ce ID: 0001 Cortez lable Time: 03:00:00 PM Elma Lux [facility] 11:29:53 Osteopor osis [id number] Completed 201703/17/2021 Age-rela genesis osteopor osis without current patholog ical fracture ;Recorde d Elsewher e: No Locat ion: [facility] S ource: EHR Antique Furniture Restorer sofy: N Practi ce ID: 0001 Cortez lable Time: 08:30:00 AM Elma Lux [facility] 11:29:59 Underwei ght [id number] Completed 201403/17/2021 Underwei ght;Prac sharon ID: 0001 [facility] 11:30:14 Stenosis of cervix [id number] Completed 201503/17/2021 Strictur e and stenosis of cervix uteri;Pr actice ID: 0001 [facility]ma [facility] 11:30:11 Atypical glandula r cells on cervical Papanico laou smear [id number] Completed 201303/17/2021 Abnormal glandula r Papanico laou smear of cervix;R ecorded Elsewher e: No Locat ion: [facility] S ource: EHR Antique Furniture Restorer sofy: N Practi ce ID: 0001 Cortez lable Time: 09:24:20 AM Elma [facility] 11:29:47 Problem Notes None recorded. Procedures Surgical History Date Name Laterality Status Provider Name and Address Organization Details Recorded Time 07/23/20 Most Recent Bone Density completed Isa Garcia [facility] 06/05/2024 09:42:41 06/26/20 23 Date of Last Mammogram completed [facility] 06/05/2024 09:42:41 05/26/20 23 Date of Last Pap Smear completed [facility] 05/23/2024 16:32:31 03/17/20 18 Date of Last Colonoscopy completed [facility] 04/08/2022 12:23:46 08/16/19 18 completed [facility] 03/18/2020 22:02:01 08/16/19 18 Colonoscopy completed [facility] 03/18/2020 21:50:13 05/15/20 16 Colposcopy completed [facility] 03/18/2020 22:01:56 05/15/20 16 Colposcopy completed [facility] 03/18/2020 22:01:38 04/16/20 16 Hysteroscopy completed [facility] 03/18/2020 21:52:13 08/16/19 08 Colonoscopy completed [facility] 03/18/2020 21:50:22 08/16/18 89 Cryotherapy/Cryo cautery completed [facility] 03/18/2020 21:57:06 Cryotherapy/Cryo cautery completed [facility] 04/08/2022 12:23:58 Imaging Results Imaging Date Name Status LastModified by Organiz ation Details LastModified Time 03/19/2021 MAMMO, screening, bilateral completed [facility] [address], [place], [address], 03/25/2021 16:30:09 04/02/2022 MAMMO, screening, bilateral completed [facility] [address], [place], [address], 04/09/2022 07:58:47 Procedure Notes None recorded. Medical Equipment None Reported. Allergies Allergen ID Allergen Name Allergen Category Reaction Reaction Severity Criticality Documentation Date Start Date Code Code System Note Provider Name and Address Organization Details Recorded Time 1526 clindamyc in Not available Not available Not available Not available 03/14/2020 2582 RxNorm Elisabeth dickerson [facility] 0 15:33:29 1527 succinylc holine Not available Not available Not available Not available 03/14/2020 90288 RxNorm Elisabeth dickerson [facility] 0 15:33:47 Medications Name Sig Start Date Stop Date Status Note LastModified by Organization Details LastModified Time ofloxacin 0.3 % eye drops INSTILL 1 DROP THREE TIMES A DAY STARTING 2 DAYS BEFORE SURGERY. 03/17 completed Not Available Not Available Not Available prednison e 20 mg tablet 03/17 completed Not Available Not Available Not Available ketorolac 0.5 % eye drops INSTILL 1 DROP INTO THE OPERATIV E EYE 3 TIMES DAILY BEGINNIN G 2 DAYS BEFORE SURGERY 03/17 completed Not Available Not Available Not Available alprazola m 0.5 mg tablet TAKE 1 TABLET BY MOUTH THREE TIMES DAILY NEEDED FOR ANXIETY active Not Available Not Available No t Available amoxicill in 875 mg tablet 875 MG ORALLY EVERY 12 HOURS 06/05 completed Not Available Not Available Not Available Vitamin D3 10 mcg (400 unit) tablet Take by oral route. active Not Available Not Available No t Available prednisol one acetate 1 % eye drops,viridiana pension INSTILL ONE DROP INTO SURGICAL EYE THREE TIMES A DAY BEGINNIN G AFTER SURGERY. 03/17 completed Not Available Not Available Not Available trazodone 100 mg tablet TAKE 1 TABLET BY MOUTH 1 TIME AT BEDTIME active Not Available Not Available No t Available cephalexi n 500 mg capsule 03/17 completed Not Available Not Available Not Available Cipro 500 mg tablet take 1 tablet by oral route every 12 hours 11/22 completed Prescrib ed Elsewher e: No Locat ion: [facility] odify By: maria teresa Encount er DateTime : 02/06/20 14 04:30:00 PM Not Available Not Available Not Available alprazola m 2 mg tablet take 1 tablet by oral route 3 times every day 03/17 completed Prescrib ed Elsewher e: Yes Loca tion: [facility] odify By: eam cote DateTime : 10/22/19 12 04:30:00 PM Not Available Not Available Not Available ergocalci ferol (vitamin D2) 1,250 mcg (50,000 unit) capsule TAKE ONE CAPSULE BY MOUTH EVERY 30 DAYS active Not Available Not Available No t Available azelastin e 137 mcg (0.1 %) nasal spray 03/17 completed Not Available Not Available Not Available fluticaso ne propionat e 50 mcg/actua tion nasal spray,viridiana pension 2 SPRAY INTRANAS ALLY DAILY ADMINIST ER INTO EACH NOSTRIL 06/05 completed Not Available Not Available Not Available ipratropi um bromide 21 mcg (0.03 %) nasal spray USE 2 SPRAYS IN EACH NOSTRIL 3 TIMES DAILY 04/08 completed Not Available Not Available Not Available Advil Cold and Sinus 30 mg-200 mg tablet take 1 tablet by oral route 4 - 6 hours as needed; do not exceed 6 tablets in 24hrs 11/09 completed Prescrib ed Elsewher e: No Locat ion: [facility] odify By: dafne gonzalez DateTime : 10/22/19 12 04:30:00 PM Not Available Not Available Not Available escitalop david 10 mg tablet TAKE 1 TABLET BY MOUTH EVERY DAY 05/17 completed Not Available Not Available Not Available Systane (propylen e glycol) 0.4 %-0.3 % eye drops 05/17 completed Not Available Not Available Not Available fexofenad ine active Not Available Not Available Not Available Calcium 500 + D 05/17 completed Not Available Not Available Not Available Actonel 150 mg tablet TAKE 1 TABLET BY MOUTH ONCE MONTHLY 01/23 completed Prescrib ed Elsewher e: No Locat ion: Rhina chen [facility] M odjocelyn By: amkuhl E ncounter DateTime : 04/04/20 01:01:55 PM Not Available Not Available Not Available Forteo 20 mcg/dose (560 mcg/2.24 mL) subcutane ous pen injector inject 0.08 millilit er by subcutan eous route every day into the thigh or abdomina l wall 03/17 completed Not Available Not Available Not Available Prolia 60 mg/mL subcutane ous syringe Inject 1 mL by subcutan eous route. active Not Available Not Available No t Available Prolia 04/08 completed Not Available Not Available Not Available ID NOW COVID-19 Test Kit TEST DIRECTED TODAY 04/08 completed Not Available Not Available Not Available COVID-19 test specimen collectio n DIRECTED 04/08 completed Not Available Not Available Not Available Vitals Date Recorded Body height Body mass index (BMI) Body weight Systolic blood pressure Diastolic blood pressure Systolic blood pressure Diastolic blood pressure Provider Name and Address Organization Details Last Updated DateTime 156.21 cm 17.1 kg/m2 72776.5 g 71 mm[Hg] 42 mm[Hg] 98 mm[Hg] 60 mm[Hg] [facility] 11:26:23 Date Recorded Body height Body weight Systolic blood pressure Diastolic blood pressure Provider Name and Address Organization Details Last Updated DateTime 04/08/2022 157.48 cm 60449.91 g 108 mm[Hg] 74 mm[Hg] [facility] 04/08/2022 12:23:31 Date Recorded Body mass index (BMI) Provider Name and Address Organization Details Last Updated DateTime 04/08/2022 16.6 kg/m2 Caryn Crockett [facility]- [address], [place], [address], [facility] 04/08/2022 12:33:19 Date Recorded Body height Body mass index (BMI) Body weight Systolic blood pressure Diastolic blood pressure Provider Name and Address Organization Details Last Updated DateTime 05/17/2023 157.48 cm 16.4 kg/m2 16604.59 g 86 mm[Hg] 54 mm[Hg] [facility] 12:37:18 Date Recorded Body height Body mass index (BMI) Body weight Systolic blood pressure Diastolic blood pressure Provider Name and Address Organization Details Last Updated DateTime 05/26/2023 157.48 cm 16.4 kg/m2 90129.59 g 95 mm[Hg] 63 mm[Hg] [facility] 15:43:20 Date Recorded Body height Body mass index (BMI) Body weight Systolic blood pressure Diastolic blood pressure Provider Name and Address Organization Details Last Updated DateTime 06/05/2024 157.48 cm 18 kg/m2 21335.49 g 100 mm[Hg] 67 mm[Hg] Isa Garcia [facility] 4 09:42:19 Social History Question Answer Notes LastModified by Organizat ion Details LastModified Time Tobacco Smoking Status Former Smoker Katie Ohara jayla, [facility] 05/17/2023 12:22:38 What Is Your Level Of Alcohol Consumption? None [email or web address] Information not available 03/18/2020 Are You Blind Or Do You Have Difficulty Seeing? No Information not available 04/08/2022 What Is Your Level Of Caffeine Consumption? Occasional Information not available 04/08/2022 How Much Tobacco Do You Chew? None Information not available 04/08/2022 In The 14 Days Before Symptom Onset, Have You Had Close Contact With A Laboratory-confir med COVID-19 While That Case Was Ill? No Information not available 04/08/2022 In The 14 Days Before Symptom Onset, Have You Had Close Contact With A Person Who Is Under Investigation For COVID-19 While That Person Was Ill? No Information not available 04/08/2022 Have You Been To An Area Known To Be High Risk For COVID-19? No Information not available 04/08/2022 Are You Deaf Or Do You Have Serious Difficulty Hearing? No Information not available 04/08/2022 What Type Of Diet Are You Following? REGULAR Information not available 04/08/2022 Which Illicit Or Recreational Drugs Have You Used? None [email or web address] Information not available 05/17/2023 Do You Or Have You Ever Used E-cigarettes Or Vape? Never Used Electronic Cigarettes [email or web address] Information not available 05/17/2023 What Is The Highest Grade Or Level Of School You Have Completed Or The Highest Degree You Have Received? [id number] Information not available 04/08/2022 What Is Your Occupation? Retired Information not available 04/08/2022 Are There Any Guns Present In Your Home? No Information not available 04/08/2022 What Was The Date Of Your Most Recent Tobacco Screening? 03/14/2020 [email or web address] Information not available 05/17/2023 Do You Use Your Seat Belt Or Car Seat Routinely? Yes Information not available 04/08/2022 Do You Have Smoke And Carbon Monoxide Detectors In Your Home? Yes Information not available 04/08/2022 Do You Or Have You Ever Used Smokeless Tobacco? Never Used Smokeless Tobacco [email or web address] Information not available 05/17/2023 How Much Tobacco Do You Smoke? No Information not available 03/18/2020 Do You Feel Stressed (tense, Restless, Nervous, Or Anxious, Or Unable To Sleep At Night)? [id number] Information not available 04/08/2022 Do You Use Any Illicit Or Recreational Drugs? No Information not available 04/08/2022 Do You Use Sunscreen Routinely? No Information not available 04/08/2022 Have You Used IV Drugs? No Information not available 04/08/2022 Sex: Unknown Functional Status Question Answer Note LastModified by Organizat ion Details LastModified Time Do you have difficulty walking or climbing stairs? No [email or web address] Information not available 05/17/2023 Are you able to walk? YESWOREST Information not available 04/08/2022 Are you able to care for yourself? Yes [email or web address] Information not available 05/17/2023 Do you have difficulty dressing or bathing? No [email or web address] Information not available 05/17/2023 What is your exercise level? Moderate Information not available 04/08/2022 Mental Status None recorded. Family History Relationship Description Onset Age of this Age Resolved Age Notes LastModified by Organization Details LastModified Time Paternal Grandmother Diabetes mellitus [email or web address] Not available 03/18 21:46:54 Maternal Grandfather Myocardial infarction [email or web address] Not available 10/2019 21:47:33 Maternal Aunt Malignant tumor of breast [email or web address] Not available 03/18 21:48:09 Sister Asthma [email or web address] Not available 03/18/2020 21:48:23 Paternal Grandfather Acute stroke [email or web address] Not available 06/05/2024 09:38:38 Father Acute stroke [email or web address] Not avai lable 06/05/2024 09:38:38 Mother Dementia [email or web address] Not availabl e 06/05/2024 09:46:09 Medical History Condition Response Anxiety Disorder Y Allergies (Food, seasonal, environmental ) Y Heart Problems Y History of STI History of abnormal pap Y Thyroid Problems Y Osteoporosis Y Neurologic/Epilepsy Y Gynecological History Statement/Question Response Abnormal Pap Y Date of Last Mammogram 06/26/2023 Date of LMP 08/16/2010 N Was last menstrual period normal Y STIs/STDs N Colposcopy 05/15/2016 Current Control Method Menopause Age at First Child 25 If Post Menopausal, Age at Menopause 48 Date of Last Colonoscopy 03/17/2018 Most Recent Bone Density 07/23/2023 Sexually Active? N Age of first menstrual cycle 10 Date of Last Pap Smear 05/26/2023 Sexual Problems? N Desired Control Method BCPs LMP Unknown 08/16/2017 N Obstetrics History GPAL:G 1 P 1 0 0 1 Type Value Full Term 1 Living 1 Total 1 Past Encounters Encounter ID Performer Location Encounter Start Date Encounter Closed Date Diagnosis/Indication Diagnosis SNOMED-CT Code Diagnosis ICD10 Code Diagnosis Note [id number] Caryn Crockett [facility] [address] [address] 03/14/2020 14:48:26 03/14/2020 15:49:26 Gynecologic examination 75914426 Z01.419 Take Calcium with Vitamin D 12-1500mg daily. Do monthly self breast exams. It is advised to get annual flu shot in the fall and she could obtain at [facility] or [facility]. If you haven't received the Tdap vaccine in the last 10 years you should obtain one as well. Have mammogram yearly, bone density every 2-3 years and colonoscop y every 5-10 years depending on findings and history. Engage in daily exercise of low impact aerobic exercise 45-60 minutes 4-5 times weekly. Avoid tobacco and illicit drugs as well as using moderation with alcohol intake less than 1-2 8 oz beverages daily. This lifestyle behavior pattern will lead to less health conditions and longer life span. If BMI greater than 25 weight watchers or dietary consult advised. Questions have been answered. Patient appears to understand instructio ns, but if you have any further questions call or respond to this email Hx abn Pap LLUVIA-II (1988) Ascus neg HPV (2015) [id number] Neg/Neg Prefers to do pap/HPV this year. Same partner. Not routinely SA. Mammo already completed & results reviewed including recent US which was wnl. Screening for osteoporosis [id number] Z13.820 [id number] Caryn Crockett , [facility] [address] [address] 03/17/2021 11:05:17 03/17/2021 14:11:08 Gynecologic examination 80902134 Z01.419 Take Calcium with Vitamin D 12-1500mg daily. Do monthly self breast exams. It is advised to get annual flu shot in the fall and she could obtain at [facility] or [facility]. If you haven't received the Tdap vaccine in the last 10 years you should obtain one as well. Have mammogram yearly, bone density every 2-3 years and colonoscop y every 5-10 years depending on findings and history. Engage in daily exercise of low impact aerobic exercise 45-60 minutes 4-5 times weekly. Avoid tobacco and illicit drugs as well as using moderation with alcohol intake less than 1-2 8 oz beverages daily. This lifestyle behavior pattern will lead to less health conditions and longer life span. If BMI greater than 25 weight watchers or dietary consult advised. Questions have been answered. Patient appears to understand instructio ns, but if you have any further questions call or respond to this email Hx abn Pap LLUVIA-II (1988) Ascus neg HPV (2016) [id number] Neg/Neg Prefers to do pap/HPV this year. Mammo ordered Dexa done by [facility]- for Hx of osteoporos is Colon UTD PCP Encouraged Increase protein intake & good fats as she is extremely thin & trying to be more active for bone health. [id number] [facility] [address] [address] 04/08/2022 11:57:43 04/08/2022 13:44:02 Gynecologic examination [id number] Z01.419 Z11.51 Take Calcium with Vitamin D 12-1500mg daily. Do monthly self breast exams. It is advised to get annual flu shot in the fall and she could obtain at [facility] or [facility] care clinic. If you haven't received the Tdap vaccine in the last 10 years you should obtain one as well. Have mammogram yearly, bone density every 2-3 years and colonoscop y every 5-10 years depending on findings and history. Engage in daily exercise of low impact aerobic exercise 45-60 minutes 4-5 times weekly. Avoid tobacco and illicit drugs as well as using moderation with alcohol intake less than 1-2 8 oz beverages daily. This lifestyle behavior pattern will lead to less health conditions and longer life span. If BMI greater than 25 weight watchers or dietary consult advised. Questions have been answered. Patient appears to understand instructio ns, but if you have any further questions call or respond to this email Pap/hpv sentSTD Screen declinedGe netic Screen discussedC olon Screen UTD PCPDexa Screen UTD PCP/Specia listRoutin e Labs UTD PCPMammo-w nl per ptDaughter is having twins! Encouraged more snacking & increase protein/fa t dense foods daily for weight gain/weigh t maintenanc e. [id number] MICHELLE Gomez [place] [address] [address] 05/17/2023 12:22:25 05/17/2023 13:56:33 Gynecologic examination [id number] Z01.419 WWEpostmen opausalhx of abnormal papslast pap 03/2022 - normalpap updatedSTI testing declinedma mmogram order given - encouraged to schedulede xa UTD - managed by specialist /PCPnia funes UTDRTC in 1 year or sooner if needed Encouraged more snacking & increase protein/fa t dense foods daily for weight gain/weigh t sahra kunzBP low, states this is wnl for her. No symptoms, feeling well. Encouraged to notify PCP of BP today, recheck at home, and ED precaution s discussed with patient. Take Calcium with Vitamin D 12-1500mg daily.Do monthly self breast exams.It is advised to get annual flu shot in the fall and she could obtain at [facility] or [facility] clinic. If you haven't received the Tdap vaccine in the last 10 years you should obtain one as well.Have mammogram yearly, bone density every 2-3 years and colonoscop y every 5-10 years depending on findings and history.En jess in daily exercise of low impact aerobic exercise 45-60 minutes 4-5 times weekly. Avoid tobacco and illicit drugs as well as using moderation with alcohol intake less than 1-2 8 oz beverages daily. This lifestyle behavior pattern will lead to less health conditions and longer life span.Quest ions have been answered. Patient appears to understand instructio ns, but if you have any further questions call or respond to this email Screening for malignant neoplasm of breast [id number] Z12.39 [id number] MICHELLE Gomez [place] [address],[facility] [place] [address] 05/26/2023 15:33:04 05/26/2023 15:58:04 Screening for malignant neoplasm of cervix 201356540 Z12.4 repeat pap collected NO charge visit [id number] CHEYENNE CRANDALL NP [place] [address] [address] 06/05/2024 09:35:38 06/05/2024 10:26:49 Gynecologic examination 09452713 Z01.419 Annual gynecologi anya exam performed. Patient will come back in a year unless there are new symptoms. Suggest Calcium with Vitamin D if not eating in diet. Patient advised to get annual flu shot. Recommend yearly physicals and perform monthly breast exams. Genetic testing is available for patients with family history of cancer. Engage in safe sexual practices, use condoms. Encouraged to have daily exercise. Avoid tobacco and illicit drugs, moderation of alcohol. If BMI greater than 25 dietary consult advised. If you have any questions please call or email. Continue eating well-jens irais meals, and increase protein intake to >100 g daily to build muscle and maintain/g ain weight. Continue exercising to maintain/i mprove bone health. mammogram- pt has scheduled at [facility] in July. colon cancer screening - UTD, due in 2027 (PCP orders) DEXA scan- UTD 07/23/23 - ordered by specialist , Prolia shots q 6months Pap smear- Pap w/HPV collected today. Patient has hx of abnormal pap smears and prefers to be screened this year (ASCUS 2016, LGSIL 2003, ASCUS HPV 2002, LLUVIA 11 1988). Discussed ASCCP guidelines . laboratory evaluation - PCP Screening mammography 24 698896 Z12.31 Health Concerns Section Related Observation LastModified by Organization Detai ls LastModified Time None Recorded Concern Status LastModified by Organization Details LastModified Time None Recorded Advance Directives Directive None Recorded Payers Encounter Date Sequence Insurance Name Policy Number Policy Hollingsworth Covered Member ID Hollingsworth Member ID Guarantor Name 03/17/2021 1 [place] [facility] (EPO) [id number] Barb Kirk Veronique [id number] BarbJuli Powerst 04/08/2022 1 [place] [id number] Barb Stanleychaimt [id number] BarbJuli Powerst 05/17/2023 1 [place] [id number] Barb Stanleyalie [id number] Barb Powerst 05/26/2023 1 [place] [id number] Barb Stanleyalie [id number] Barb Powershudson 06/05/2024 2 [facility] (MEDICARE SUPPLEMENT) Barb Yelena Piper [id number] Barb Kirk Veronique 06/05/2024 1 [place] BarbJuli Piper [id number] Barb Yelena Veronique Notes Date Note Type Note Provider Name and Address Organization Details Recorded Time 03/17/2021 text/html 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 Post-MenopausalRep orted bypatient.Menopaus al Symptoms:no menopausal symptoms; normal vaginal lubrication Vaginal Bleeding:history of menopause having occurred; no history of post menopausal bleeding Urinary Symptoms:no hematuria; no incontinence; no nocturia; no urinary frequency Vulva:no genital lesion; no vulvar atrophy Vagina:normal vaginal discharge; no vaginal atrophy Breast:no breast lump; no nipple discharge; no breast pain Sexual Complaints:no sexual complaints Psychological Symptoms:no depression; no anxiety Preventive Measures:encourage regular mammograms starting age 40; encourage self breast examination; encourage regular exercise; encourage no tobacco use; needs to schedule mammogram; history of recent colonoscopy; needs to schedule bone density (Done by [facility]) MATTY Carrion [address], [place], [address], [facility] 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 bypatient.Menopaus al Symptoms:no menopausal symptoms; normal vaginal lubrication Vaginal Bleeding:history of menopause having occurred; no history of post menopausal bleeding Urinary Symptoms:no hematuria; no incontinence; no nocturia; no urinary frequency Vulva:no genital lesion; no vulvar atrophy Vagina:normal vaginal discharge; no vaginal atrophy Breast:no breast lump; no nipple discharge; no breast pain Sexual Complaints:no sexual complaints Psychological Symptoms:no depression; no anxiety Preventive Measures:encourage regular mammograms starting age 40; encourage self breast examination; encourage regular exercise; encourage no tobacco use; mammogram performed within the past year; history of recent colonoscopy MATTY Carrion [address], [place], [address], [facility] 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 bypatient.Menopaus al Symptoms:no menopausal symptoms; normal vaginal lubrication Vaginal Bleeding:history of menopause having occurred; no history of post menopausal bleeding Urinary Symptoms:no hematuria; no incontinence; no nocturia; no urinary frequency Vulva:no genital lesion; no vulvar atrophy Vagina:normal vaginal discharge; no vaginal atrophy Breast:no breast lump; no nipple discharge; no breast pain Sexual Complaints:no sexual complaints Psychological Symptoms:no depression; no anxiety Preventive Measures:encourage regular mammograms starting age 40; encourage self breast examination; encourage regular exercise; encourage no tobacco use; needs to schedule mammogram; history of recent colonoscopyNotes:o n prolia injections, managed by specialist/PCP MICHELLE Gomez [address], [place], [address], [facility] 05/17/2023 13:55:52 05/26/2023 text/html 62yohere for repeat [facility] at [facility] MICHELLE Gomez [address], [place], [address], [facility] 05/26/2023 15:52:10 06/05/2024 text/html Annual GYNReport ed bypatient.History: no gynecologic complaints Menstrual cycle:Post menopausal Urinary symptoms:No hematuria; No incontinence Vulva:No genital lesion Vagina:Normal vaginal discharge Breast:No breast pain; No breast lump; No nipple discharge Sexual complaints:No sexual complaints; No pain during intercourse; Normal libido Menopausal Symptoms:No menopausal symptoms; Normal vaginal lubrication Psychological symptoms:No depression; No anxiety; No PMDD Preventive measures:Encourage self breast examination; Encourage regular exercise; Encourage no tobacco use; Encourage regular mammograms starting age 40; Followed with yearly pap smears; History of abnormal pap smear/cervical dysplasia; Mammogram performed within the past year; Up to date on colonoscopy screening Patient presents for annual well woman exam. Patient denies concerns today. CHEYENNE CRANDALL NP [address], [place], [address], [facility] 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 Status 03/18/20 20 1 CLOSED Fetus Data First Name Last Name Admitted to NICU Weight (g) Sex Living Outcome Pediatric Complications Fetus ID Race Codes Race Delivery Type 3033.16 [id number] F Full Term [id number] Vaginal Delivery Gualberto Calculation Initial Gualberto Date Initial Exam Date Initial Exam Provider Initial Ultrasound Date Last Menstrual Period Date Ultra Sound Weeks Gestation 0 Eighteen To Twenty Week Gualberto Update Ultra Sound Date Fundal Height At Umbil Quickening Date Ultra Sound Latest Weeks Gestation Final Gualberto Confirmed By Final Gualberto Confirmed Date Final Gualberto Date Ultra Sound Latest Days Gestation 0 0 Menstrual History Last Menstrual Date Menses Monthly On Bcp Conception Prior Menses Frequency Hcg Plus Date Menarche Onset Age Delivery Information Delivery Date Delivery Type Labor Anesthesia Weeks Gestation Incision Type Labor Labor Length Hrs Delivered By Post Complications Tubal Sterilization Discharge Date Comments 6 Discharge Information Feeding Method Contraceptive Method Maternal HG B and HCT Levels
--- OUTSIDE RECORDS SUMMARY | 2024-12-11 10:32 | XMS_ITS ---
Author Organization [employer] [facility] [place] ([address]) Address [address] [place] [address] Care Team Providers Care Battery Filler Name Role Phone Jared Amezcua Primary Care Provider Laureen Colmenares Unavailable [phone] Nikos Stroud [phone] REASON FOR VISIT SCIT - Traditional Schedule Allergy Immunotherapy Encounters Encounter Location Date Provider Diagnosis [facility] [address] [place] [address] 11/27/2024 Nikos Stroud Allergic rhinitis du e to pollen J30.1 ; Other allergic rhinitis J30.89 ; Allergic rhinitis due to animal (cat) (dog) hair and dander J30.81 and Other chronic allergic conjunctivitis H10.45 Assessments Encounter Date Diagnosis (ICD Code) Assessment Notes Treatment Notes Treatment Clinical Notes Section Notes 11/27/2024 Allergic rhinitis due to pollen (ICD-10 - J30.1) 11/27/2024 Other allergic rhinitis (ICD-10 - J30.89) 11/27/2024 Allergic rhinitis due to animal (cat) (dog) hair and dander (ICD-10 - J30.81) 11/27/2024 Other chronic allergic conjunctivitis (ICD-10 - H10.45) Plan Of Treatment Next Appt Details Follow Up: 1 Week, Reason: Provider Name:Laureen leslie, 01/01/2025 10:30:00 AM, [address] [facility], [address], [place], [address], Progress Notes * Barb LOPEZ MDOB:1960 (64 yo F)Acc No.[id number]:11/27/2024 SCIT-Aeroallergen Patient: Barb REEVES Provider: Arron Stroud MD :1960 A ge:64 Y S ex:Female Date:11/27/2024 Address:[address] [place], [place] [id number] Pcp:Jared Amezcua Subjective: * Chief Complaints: * 1 . SCIT - Traditional Schedule Allergy Immunotherapy. * HPI: * Introduction: The patient is here for scheduled immunotherapy. Please see the attached specialty form regarding the specifics of the administration of these vaccines. As per our protocol, they must undergo a screening health questionnaire (medication changes, reaction(s) to last immunotherapy dose(s), current health status, ACT (if appropriate), self-injectable epinephrine on patient(?) and peak flow (if appropriate)). Also, the patient must wait in our office for 30 minutes after receiving the vaccine(s). Furthermore, every patient must have an epinephrine pen (self-injectable) with them at the time of administration--and carry if for the following 1.5 hours after they leave our office. The patient must also have taken their antihistamine the day of the injection, preferably 2 hours prior. The consent form for SCIT (subcutaneous immunotherapy) is on file. * Medical History: Objective: * Vitals: Assessment: * Assessment: 1. A llergic rhinitis due to pollen - J30.1 (Primary) 2 . O ther allergic rhinitis - J30.89 3 . A llergic rhinitis due to animal (cat) (dog) hair and dander - J30.81 4 . O ther chronic allergic conjunctivitis - H10.45 Plan: * Treatment: * Follow Up: 1 Week * Billing Information: * Visit Code: * Procedure Codes: 90801 IMMUNOTHERAPY INJECTIONS. * Electronic signature of Patmariama Stroud MD, FAAAAI on 12/11/2024 at 10:32 AM CDT Sign off status: Pending * Provider: Arron Stroud MD Date: 0 11/27/2024 Generated for Eldon dave/Dany/Maury on: 0 12/11/2024 10:32 AM CDT History and Physical Notes * HPI (History of Present Illness) Category Sub-Category Detail Notes Category Not es *Introduction The patient is here for scheduled immunotherapy. Please see the attached specialty form regarding the specifics of the administration of these vaccines. As per our protocol, they must undergo a screening health questionnaire (medication changes, reaction(s) to last immunotherapy dose(s), current health status, ACT (if appropriate), self-injectable epinephrine on patient(?) and peak flow (if appropriate)). Also, the patient must wait in our office for 30 minutes after receiving the vaccine(s). Furthermore, every patient must have an epinephrine pen (self-injectable) with them at the time of administration--and carry if for the following 1.5 hours after they leave our office. The patient must also have taken their antihistamine the day of the injection, preferably 2 hours prior. The consent form for SCIT (subcutaneous immunotherapy) is on file.
--- OUTSIDE RECORDS SUMMARY | 2024-12-11 10:32 | XMS_ITS | Patient Health Record ---
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 Role Phone Jared Amezcua Primary Care Provider UnavailLaureen Harris Unavailable [phone] Nikos Stroud Unavailable [phone] [employer], Provider Unavailable Unavailab Tiesha Terry Unavailable [phone] Allergies Allergen (clinical drug ingredient) Drug/Non Drug Allergy documented on EMR Reaction Allergy Type Onset Date Status clindamycin Clindamycin pseudomembranous colitis Drug Allergy Active Reason For Referral No Information Medications Medication SIG (Take, Route, Frequency, Duration) Notes Start Date End Date Status FAMOTIDINE 40 mg 1 tab(s) orally 30 mins prior to SCIT for 30 days Active AZELASTINE HYDROCHLORIDE NASAL 137 mcg/inh 2 spray(s) intranasally 2 times a day for 30 day(s) Not-Taking IPRATROPIUM BROMIDE NASAL 21 mcg/inh 2 spray(s) in each nostril 3 times daily for 90 days Not-Taking Azelastine HCl 137 MCG/SPRAY 2 spray(s) intranasally 2 times a day for 30 day(s) Not-Taking Famotidine 40 mg 1 tab(s) orally 30 mins prior to SCIT for 30 days Active Nasacort Allergy 24HR 55 MCG/ACT 2 sprays, each nostril intranasally, avoid nasal septum daily for 30 days Not-Taking VITAMIN D3 1250 mcg 1 cap(s) orally once a week Active AUVI-Q 0.3 mg 0.3 mg intramuscularly once for 30 day(s) Active ALPRAZOLAM 0.5 mg 1 tab(s) orally Qday, PRN Active CALCIUM ACETATE 667 mg 3 tab(s) orally 3 times a day Active NASAL WASHES N/A as directed intranasally as needed Active Ipratropium [place] 0.02 % 2 sprays in each nostril twice daily Inhalation every 8 hrs for 90 days *Please review and pick correct strength-formula tion from Virax options. If intended option is not shown, discontinue and re-order from [employer] Search* Active Triamcinolone Acetonide 55 MCG/ACT 1 spray in each nostril Nasally Twice a day for 30 days 06/26/2024 Active SIT (TRADITIONAL) variable per schedule SC per schedule for to be determined Active FEXOFENADINE 180 mg 1 tab(s) orally once a day, PRN for 30 days Active AUVI-Q 0.3 mg 0.3 mg intramuscularly once for 30 day(s) Active PROLIA 60 mg/mL as directed subcutaneously every 6 months for 12 month(s) Active FAMOTIDINE 40 mg 1 tab(s) orally 30 mins prior to SCIT for 30 days 12/27/2023 Active TRAZODONE 100 mg 1 tab(s) orally QHS Active traZODone HCl 100 MG 1 tab(s) orally QHS Active Prolia 60 MG/ML as directed subcutaneously every 6 months for 12 month(s) Active NASACORT AQ 55 mcg/inh 2 sprays, each nostril intranasally, avoid nasal septum daily for 30 days Not-Taking Vitamin D3 1250 MCG 1 CAP(S) ORALLY ONCE A WEEK *Please review and pick correct strength-formula tion from Virax options. If intended option is not shown, discontinue and re-order from Quick Search* Active Fexofenadine HCl 180 MG 1 tab(s) orally once a day, PRN for 30 days Active ALPRAZolam 0.5 MG 1 tab(s) orally Qday, PRN Active Calcium Acetate 667 MG 3 tab(s) orally 3 times a day Active Auvi-Q 0.3 mg 0.3 mg intramuscularly once for 30 day(s) Active Immunizations Vaccine Route Administration Date Status Comme [facility] COVID-19 (Moderna) Unknown 12/27/2020 Administered COVID-19 (Moderna) Unknown 01/24/2021 Administered Flucelvax Unknown 05/25/2019 Administered NOC Influenza-Afluria Unknown 05/16/2012 Administered Social History Tobacco Use: Social History Observation Description Date Details (start date - stop date) Never Smoker NA - NA Smoking Smart Form: Question Answer Notes Are you a: never smoker Tobacco Control (Standard) Question Answer Notes Tobacco use: Nonsmoker Problems Problem Type SNOMED Code ICD Code Onset Dates Problem Status W/U Status Risk Notes Problem Chronic migraine without aura, non-refractory (disorder) (357658861155510) Migraine without aura, not intractable, without status migrainosus (G43.009) Active confirmed Problem Migraine with aura (9201996) Migraine with aura, not intractable, without status migrainosus (G43.109) Active confirmed Problem Chronic migraine without aura, non-intractable (729054048443799) Chronic migraine without aura, not intractable, without status migrainosus (G43.709) Active confirmed Problem Chronic allergic conjunctivitis (43134962) Other chronic allergic conjunctivitis (H10.45) Active confirmed Problem Allergic rhinitis caused by pollen (disorder) (55002721) Allergic rhinitis due to pollen (J30.1) Active confirmed Problem Allergic rhinitis (77732179) Other allergic rhinitis (J30.89) Active confirmed Problem Allergic rhinitis caused by animal hair and dander (089943671331924) Allergic rhinitis due to animal (cat) (dog) hair and dander (J30.81) Active confirmed Vital Signs Respiratory Rate 18 /min 06/26/2024 Oximetry 100 % 06/26/2024 Blood pressure diastolic 67 mm Hg 06/26/2024 Height 63.75 in 06/26/2024 Blood pressure systolic 98 mm Hg 06/26/2024 Weight 90.2 lbs 06/26/2024 BMI 15.6 kg/m2 06/26/2024 Encounters Encounter Location Date Provider Diagnosis [facility] [address] [place] [address] 01/29/2024 Provider [employer] Allergic rhinitis due to pollen J30.1 [facility] [address] [facility] [address] [place] [address] 12/13/2023 Nikos Stroud Allergic rhinitis du e to pollen J30.1 ; Other allergic rhinitis J30.89 ; Allergic rhinitis due to animal (cat) (dog) hair and dander J30.81 and Other chronic allergic conjunctivitis H10.45 [facility] [address] [place] [address] [employer] [address] [address] 12/27/2023 Laureenflora Landgabriella Allergic rhinitis du e to pollen J30.1 ; Chronic rhinitis J31.0 ; Allergic rhinitis due to animal (cat) (dog) hair and dander J30.81 ; Other allergic rhinitis J30.89 ; Other chronic allergic conjunctivitis H10.45 and Palpitations R00.2 [facility] [address] [place] [address] [employer] [address] [address] 01/17/2024 Nikos Stroud Allergic rhinitis du e to pollen J30.1 ; Other allergic rhinitis J30.89 ; Allergic rhinitis due to animal (cat) (dog) hair and dander J30.81 and Other chronic allergic conjunctivitis H10.45 [facility] [address] [place] [address] [employer] [address] [address] 02/14/2024 Nikos Stroud Allergic rhinitis du e to pollen J30.1 ; Other allergic rhinitis J30.89 ; Allergic rhinitis due to animal (cat) (dog) hair and dander J30.81 and Other chronic allergic conjunctivitis H10.[address] [employer] [address] [address] 03/20/2024 Nikos Stroud Allergic rhinitis du e to pollen J30.1 ; Other allergic rhinitis J30.89 ; Allergic rhinitis due to animal (cat) (dog) hair and dander J30.81 and Other chronic allergic conjunctivitis H10.45 [facility] [address] [place] [address] [employer] [address] [address] 04/27/2024 Nikos Stroud Allergic rhinitis du e to pollen J30.1 ; Other allergic rhinitis J30.89 ; Allergic rhinitis due to animal (cat) (dog) hair and dander J30.81 and Other chronic allergic conjunctivitis H10.45 [facility] [address] [place] [address] 06/07/2024 Nikos Stroud Allergic rhinitis du e to pollen J30.1 ; Other allergic rhinitis J30.89 ; Allergic rhinitis due to animal (cat) (dog) hair and dander J30.81 and Other chronic allergic conjunctivitis H10.45 [facility] [address] [place] [address] [employer] [address] [address] 06/26/2024 Laureen Hurst Allergic rhinitis du e to pollen J30.1 ; Chronic rhinitis J31.0 ; Allergic rhinitis due to animal (cat) (dog) hair and dander J30.81 ; Other allergic rhinitis J30.89 ; Other chronic allergic conjunctivitis H10.45 ; Headache, unspecified R51.9 and Palpitations R00.2 [facility] [address] [place] [address] [employer] [address] [address] 07/31/2024 Nikos Maximus Allergic rhinitis du e to pollen J30.1 ; Other allergic rhinitis J30.89 ; Allergic rhinitis due to animal (cat) (dog) hair and dander J30.81 and Other chronic allergic conjunctivitis H10.45 [facility] [address] [place] [address] [employer] [address] [address] 09/04/2024 Nikos Maximus Allergic rhinitis du e to pollen J30.1 ; Other allergic rhinitis J30.89 ; Allergic rhinitis due to animal (cat) (dog) hair and dander J30.81 and Other chronic allergic conjunctivitis H10.45 [facility] [address] [place] [address] [employer] [address] [address] 10/09/2024 Nikos Maximus Allergic rhinitis du e to pollen J30.1 ; Other allergic rhinitis J30.89 ; Allergic rhinitis due to animal (cat) (dog) hair and dander J30.81 and Other chronic allergic conjunctivitis H10.45 [facility] [address] [place], [place] [address] [address] [address] 11/13/2024 Nikosclement Stroud Allergic rhinitis du e to pollen J30.1 ; Other allergic rhinitis J30.89 ; Allergic rhinitis due to animal (cat) (dog) hair and dander J30.81 and Other chronic allergic conjunctivitis H10.45 [facility] [address] [place], [place] [address] [address] [address] 11/20/2024 Nikos Stroud Allergic rhinitis du e to pollen J30.1 ; Other allergic rhinitis J30.89 ; Allergic rhinitis due to animal (cat) (dog) hair and dander J30.81 and Other chronic allergic conjunctivitis H10.45 [facility] [address] [place] [place] [address] 11/29/2024 Nikos Stroud Allergic rhinitis du e to pollen J30.1 ; Other allergic rhinitis J30.89 ; Allergic rhinitis due to animal (cat) (dog) hair and dander J30.81 and Other chronic allergic conjunctivitis H10.45 [facility] [address] [place] [place] [address] 06/26/2024 Laureen Hurst Assessments Encounter Date Diagnosis (ICD Code) Assessment Notes Treatment Notes Treatment Clinical Notes Section Notes 12/13/2023 Allergic rhinitis due to pollen (ICD-10 - J30.1) 12/27/2023 Allergic rhinitis due to pollen (ICD-10 - J30.1) Barb was previously on SCIT with Dr. Krishna. Her vials were reformulated 06/2022 due to worsening symptoms. She finished rapid desensitization and continues on MM. Continues Mariama PRN and for premedication. No longer using intranasal medications. Continues to report symptoms with barometric changes, but notes improvement with reformulation. - Continue medications as listed above - Barb was not due for dosing today. Does report recent LLR, will start Pepcid along with Mariama prior to SCIT. - Barb recently saw a new ENT, unsure who she saw, due to new onset ear pain. She reports she was told she has TMJ. Her ear pain has since resolved. - AIE up to date. - Return as scheduled for SCIT and 6 months for evaluation and management 12/27/2023 Chronic rhinitis (ICD-10 - J31.0) Continue to treat atopy. Consider non-allerigic rhinitis to be contributor to continued symptoms. No longer taking ipratropium-bromid e. Prior ENT evaluation showed given she has deviated septum. No polyps on today's exam. Saw ENT after 2019 eval and noted no polyps either - Continue to follow with ENT 01/17/2024 Allergic rhinitis due to pollen (ICD-10 - J30.1) 01/29/2024 Allergic rhinitis due to pollen (ICD-10 - J30.1) 02/14/2024 Allergic rhinitis due to pollen (ICD-10 - J30.1) 03/20/2024 Allergic rhinitis due to pollen (ICD-10 - J30.1) 04/27/2024 Allergic rhinitis due to pollen (ICD-10 - J30.1) 06/07/2024 Allergic rhinitis due to pollen (ICD-10 - J30.1) 06/26/2024 Allergic rhinitis due to pollen (ICD-10 - J30.1) Barb was previously on SCIT with Dr. Krishna. Her vials were reformulated 06/2022 due to worsening symptoms. She finished rapid desensitization and continues on MM. Continues Mariama PRN and for premedication. Continues to report symptoms with barometric changes, but notes improvement with reformulation. - Continue medications as listed above, discussed restarting INS due to increased sinus pressure. - Barb tolerated SCIT dosing today. She denies recent large local or systemic reactions. - Barb recently saw a new ENT, unsure who she saw, due to new onset ear pain. She reports she was told she has TMJ. Her ear pain has since resolved. - AIE up to date. - Return as scheduled for SCIT and 6 months for evaluation and management 06/26/2024 Chronic rhinitis (ICD-10 - J31.0) Continue to treat atopy. Consider non-allerigic rhinitis to be contributor to continued symptoms. No longer taking ipratropium-bromid e. Prior ENT evaluation showed given she has deviated septum. No polyps on today's exam. Saw ENT after 2019 eval and noted no polyps either - Continue to follow with ENT 07/31/2024 Allergic rhinitis due to pollen (ICD-10 - J30.1) 09/04/2024 Allergic rhinitis due to pollen (ICD-10 - J30.1) 10/09/2024 Allergic rhinitis due to pollen (ICD-10 - J30.1) 11/13/2024 Allergic rhinitis due to pollen (ICD-10 - J30.1) 11/20/2024 Allergic rhinitis due to pollen (ICD-10 - J30.1) 11/29/2024 Allergic rhinitis due to pollen (ICD-10 - J30.1) 11/29/2024 Other allergic rhinitis (ICD-10 - J30.89) 11/20/2024 Other allergic rhinitis (ICD-10 - J30.89) 11/13/2024 Other allergic rhinitis (ICD-10 - J30.89) 10/09/2024 Other allergic rhinitis (ICD-10 - J30.89) 09/04/2024 Other allergic rhinitis (ICD-10 - J30.89) 07/31/2024 Other allergic rhinitis (ICD-10 - J30.89) 06/26/2024 Allergic rhinitis due to animal (cat) (dog) hair and dander (ICD-10 - J30.81) Follow allergen avoidance, meds and continue SCIT as an adjunctive treatment to current regimen 06/07/2024 Other allergic rhinitis (ICD-10 - J30.89) 04/27/2024 Other allergic rhinitis (ICD-10 - J30.89) 03/20/2024 Other allergic rhinitis (ICD-10 - J30.89) 02/14/2024 Other allergic rhinitis (ICD-10 - J30.89) 01/17/2024 Other allergic rhinitis (ICD-10 - J30.89) 12/27/2023 Allergic rhinitis due to animal (cat) (dog) hair and dander (ICD-10 - J30.81) Follow allergen avoidance, meds and continue SCIT as an adjunctive treatment to current regimen 12/13/2023 Other allergic rhinitis (ICD-10 - J30.89) 12/13/2023 Allergic rhinitis due to animal (cat) (dog) hair and dander (ICD-10 - J30.81) 12/27/2023 Other allergic rhinitis (ICD-10 - J30.89) Follow allergen avoidance, meds and continue SCIT as an adjunctive treatment to current regimen 01/17/2024 Allergic rhinitis due to animal (cat) (dog) hair and dander (ICD-10 - J30.81) 02/14/2024 Allergic rhinitis due to animal (cat) (dog) hair and dander (ICD-10 - J30.81) 03/20/2024 Allergic rhinitis due to animal (cat) (dog) hair and dander (ICD-10 - J30.81) 04/27/2024 Allergic rhinitis due to animal (cat) (dog) hair and dander (ICD-10 - J30.81) 06/07/2024 Allergic rhinitis due to animal (cat) (dog) hair and dander (ICD-10 - J30.81) 06/26/2024 Other allergic rhinitis (ICD-10 - J30.89) Follow allergen avoidance, meds and continue SCIT as an adjunctive treatment to current regimen 09/04/2024 Allergic rhinitis due to animal (cat) (dog) hair and dander (ICD-10 - J30.81) 07/31/2024 Allergic rhinitis due to animal (cat) (dog) hair and dander (ICD-10 - J30.81) 10/09/2024 Allergic rhinitis due to animal (cat) (dog) hair and dander (ICD-10 - J30.81) 11/13/2024 Allergic rhinitis due to animal (cat) (dog) hair and dander (ICD-10 - J30.81) 11/20/2024 Allergic rhinitis due to animal (cat) (dog) hair and dander (ICD-10 - J30.81) 11/29/2024 Allergic rhinitis due to animal (cat) (dog) hair and dander (ICD-10 - J30.81) 07/31/2024 Other chronic allergic conjunctivitis (ICD-10 - H10.45) 11/29/2024 Other chronic allergic conjunctivitis (ICD-10 - H10.45) 11/20/2024 Other chronic allergic conjunctivitis (ICD-10 - H10.45) 11/13/2024 Other chronic allergic conjunctivitis (ICD-10 - H10.45) 10/09/2024 Other chronic allergic conjunctivitis (ICD-10 - H10.45) 09/04/2024 Other chronic allergic conjunctivitis (ICD-10 - H10.45) 06/26/2024 Other chronic allergic conjunctivitis (ICD-10 - H10.45) Given ocular signs and symptoms I encouraged allergy avoidance measures and meds as above. If symptoms persist, consider adding additional medications including intraocular antihistamine/mast cell stabilizer, PRN and SCIT as an adjunctive measure 06/07/2024 Other chronic allergic conjunctivitis (ICD-10 - H10.45) 04/27/2024 Other chronic allergic conjunctivitis (ICD-10 - H10.45) 03/20/2024 Other chronic allergic conjunctivitis (ICD-10 - H10.45) 02/14/2024 Other chronic allergic conjunctivitis (ICD-10 - H10.45) 01/17/2024 Other chronic allergic conjunctivitis (ICD-10 - H10.45) 12/27/2023 Other chronic allergic conjunctivitis (ICD-10 - H10.45) Given ocular signs and symptoms I encouraged allergy avoidance measures and meds as above. If symptoms persist, consider adding additional medications including intraocular antihistamine/mast cell stabilizer, PRN and SCIT as an adjunctive measure 12/13/2023 Other chronic allergic conjunctivitis (ICD-10 - H10.45) 12/27/2023 Palpitations (ICD-10 - R00.2) Last visit Barb reported episodes of heart palpitations. Reported increased stress with kitchen remodel and taking care of grandchildren. - Patient reports she saw her PCP and the palpitations resolved. 06/26/2024 Headache, unspecified (ICD-10 - R51.9) Barb reports increased sinus pressure that she is now describing as migraines that occur with weather changes. - Barb is interested in neurology evaluation, directed her to [facility] 06/26/2024 Palpitations (ICD-10 - R00.2) Last visit Barb reported episodes of heart palpitations. Reported increased stress with kitchen remodel and taking care of grandchildren. - Patient reports she saw her PCP and the palpitations resolved. 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
--- OUTSIDE RECORDS SUMMARY | 2024-12-11 10:32 | XMS_ITS ---
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/Stewardess Name Role Phone Jared Amezcua Primary Care Provider UnavailLaureen Harris Unavailable [phone] Nikos Stroud Unavailable [phone] REASON FOR VISIT SCIT - Traditional Schedule Allergy Immunotherapy Medications Medication SIG (Take, Route, Frequency, Duration) Notes Start Date End Date Status Nasacort Allergy 24HR 55 MCG/ACT 2 sprays, each nostril intranasally, avoid nasal septum daily for 30 days Not-Taking AZELASTINE HYDROCHLORIDE NASAL 137 mcg/inh 2 spray(s) intranasally 2 times a day for 30 day(s) Not-Taking Triamcinolone Acetonide 55 MCG/ACT 1 spray in each nostril Nasally Twice a day for 30 days 06/26/2024 Active Azelastine HCl 137 MCG/SPRAY 2 spray(s) intranasally 2 times a day for 30 day(s) Not-Taking Ipratropium [place] 0.02 % 2 sprays in each nostril twice daily Inhalation every 8 hrs for 90 days *Please review and pick correct strength-formula tion from Medispan options. If intended option is not shown, discontinue and re-order from Quick Search* Active IPRATROPIUM BROMIDE NASAL 21 mcg/inh 2 spray(s) in each nostril 3 times daily for 90 days Not-Taking NASACORT AQ 55 mcg/inh 2 sprays, each nostril intranasally, avoid nasal septum daily for 30 days Not-Taking traZODone HCl 100 MG 1 tab(s) orally QHS Active Prolia 60 MG/ML as directed subcutaneously every 6 months for 12 month(s) Active ALPRAZolam 0.5 MG 1 tab(s) orally Qday, PRN Active TRAZODONE 100 mg 1 tab(s) orally QHS Active Fexofenadine HCl 180 MG 1 tab(s) orally once a day, PRN for 30 days Active FAMOTIDINE 40 mg 1 tab(s) orally 30 mins prior to SCIT for 30 days 12/27/2023 Active Calcium Acetate 667 MG 3 tab(s) orally 3 times a day Active Vitamin D3 1250 MCG 1 CAP(S) ORALLY ONCE A WEEK *Please review and pick correct strength-formula tion from PenPath options. If intended option is not shown, discontinue and re-order from Quick Search* Active ALPRAZOLAM 0.5 mg 1 tab(s) orally Qday, PRN Active CALCIUM ACETATE 667 mg 3 tab(s) orally 3 times a day Active PROLIA 60 mg/mL as directed subcutaneously every 6 months for 12 month(s) Active AUVI-Q 0.3 mg 0.3 mg intramuscularly once for 30 day(s) Active VITAMIN D3 1250 mcg 1 cap(s) orally once a week Active Famotidine 40 mg 1 tab(s) orally 30 mins prior to SCIT for 30 days Active Auvi-Q 0.3 mg 0.3 mg intramuscularly once for 30 day(s) Active SIT (TRADITIONAL) variable per schedule SC per schedule for to be determined Active FEXOFENADINE 180 mg 1 tab(s) orally once a day, PRN for 30 days Active NASAL WASHES N/A as directed intranasally as needed Active Encounters Encounter Location Date Provider Diagnosis [facility] [address] [place] [address] 11/20/2024 Nikos Stroud Allergic rhinitis du e to pollen J30.1 ; Other allergic rhinitis J30.89 ; Allergic rhinitis due to animal (cat) (dog) hair and dander J30.81 and Other chronic allergic conjunctivitis H10.45 Assessments Encounter Date Diagnosis (ICD Code) Assessment Notes Treatment Notes Treatment Clinical Notes Section Notes 11/20/2024 Allergic rhinitis due to pollen (ICD-10 - J30.1) 11/20/2024 Other allergic rhinitis (ICD-10 - J30.89) 11/20/2024 Allergic rhinitis due to animal (cat) (dog) hair and dander (ICD-10 - J30.81) 11/20/2024 Other chronic allergic conjunctivitis (ICD-10 - H10.45) Plan Of Treatment Next Appt Details Follow Up: 1 Week, Reason: Provider Name:Laureen leslie, 01/01/2025 10:30:00 AM, [facility], [address] [place] [address], [address], Progress Notes * Barb LOPEZ MDOB:1960 (64 yo F)Acc No.[id number]:11/20/2024 SCIT-Aeroallergen Patient: Stacia Barb MCLEAN Provider: Arron Stroud MD :1960 A ge:64 Y S ex:Female Date:11/20/2024 Address:[address] [place], [place] [id number] Pcp:Jared Amezcua Subjective: * Chief Complaints: * S CIT - Traditional Schedule Allergy Immunotherapy * HPI: * Introduction: The patient is [...] immunotherapy) is on file. * Medical History: * Surgical History: * Hospitalization/Major Diagno stic Procedure: * Medications: T akingAuvi-Q 0.3 mg kit 0.3 mg intramuscularly once Famotidine 40 mg tablet 1 tab(s) orally 30 mins prior to SCIT Auvi-Q 0.3 mg kit 0.3 mg intramuscularly once Famotidine 40 mg tablet 1 tab(s) orally 30 mins prior to SCIT NASAL WASHES N/A 1 quart of sterilized tap water or distilled water, 1 tsp NaCl, 1 pinch of baking soda as directed intranasally as needed FEXOFENADINE 180 mg tablet 1 tab(s) orally once a day, PRN SIT (TRADITIONAL) variable see record per schedule SC per schedule AUVI-Q 0.3 mg kit 0.3 mg intramuscularly once VITAMIN D3 1250 mcg capsule 1 cap(s) orally once a week CALCIUM ACETATE 667 mg tablet 3 tab(s) orally 3 times a day ALPRAZOLAM 0.5 mg tablet 1 tab(s) orally Qday, PRN PROLIA 60 mg/mL solution as directed subcutaneously every 6 months TRAZODONE 100 mg tablet 1 tab(s) orally QHS FAMOTIDINE 40 mg tablet 1 tab(s) orally 30 mins prior to SCIT Fexofenadine HCl 180 MG Tablet 1 tab(s) orally once a day, PRN Vitamin D3 1250 MCG CAPSULE 1 CAP(S) ORALLY ONCE A WEEK , Notes to Pharmacist: *Please review and pick correct strength-formulation from [place] 100espan options. If intended option is not shown, discontinue and re-order from Quick Search*Calcium Acetate 667 MG Tablet 3 tab(s) orally 3 times a day ALPRAZolam 0.5 MG Tablet 1 tab(s) orally Qday, PRN Prolia 60 MG/ML Solution Prefilled Syringe as directed subcutaneously every 6 months traZODone HCl 100 MG Tablet 1 tab(s) orally QHS Triamcinolone Acetonide 55 MCG/ACT Aerosol 1 spray in each nostril Nasally Twice a day Ipratropium [place] 0.02 % Solution 2 sprays in each nostril twice daily Inhalation every 8 hrs , Notes to Pharmacist: *Please review and pick correct strength-formulation from [place] [employer]espan options. If intended option is not shown, discontinue and re-order from Quick Search*Taking Auvi-Q 0.3 mg kit 0.3 mg intramuscularly once Taking Famotidine 40 mg tablet 1 tab(s) orally 30 mins prior to SCIT Taking Auvi-Q 0.3 mg kit 0.3 mg intramuscularly once Taking Famotidine 40 mg tablet 1 tab(s) orally 30 mins prior to SCIT Taking NASAL WASHES N/A 1 quart of sterilized tap water or distilled water, 1 tsp NaCl, 1 pinch of baking soda as directed intranasally as needed Taking FEXOFENADINE 180 mg tablet 1 tab(s) orally once a day, PRN Taking SIT (TRADITIONAL) variable see record per schedule SC per schedule Taking AUVI-Q 0.3 mg kit 0.3 mg intramuscularly once Taking VITAMIN D3 1250 mcg capsule 1 cap(s) orally once a week Taking CALCIUM ACETATE 667 mg tablet 3 tab(s) orally 3 times a day Taking ALPRAZOLAM 0.5 mg tablet 1 tab(s) orally Qday, PRN Taking PROLIA 60 mg/mL solution as directed subcutaneously every 6 months Taking TRAZODONE 100 mg tablet 1 tab(s) orally QHS Taking FAMOTIDINE 40 mg tablet 1 tab(s) orally 30 mins prior to SCIT Taking Fexofenadine HCl 180 MG Tablet 1 tab(s) orally once a day, PRN Taking Vitamin D3 1250 MCG CAPSULE 1 CAP(S) ORALLY ONCE A WEEK , Notes to Pharmacist: *Please review and pick correct strength-formulation from [employer] options. If intended option is not shown, discontinue and re-order from Quick Search*Taking Calcium Acetate 667 MG Tablet 3 tab(s) orally 3 times a day Taking ALPRAZolam 0.5 MG Tablet 1 tab(s) orally Qday, PRN Taking Prolia 60 MG/ML Solution Prefilled Syringe as directed subcutaneously every 6 months Taking traZODone HCl 100 MG Tablet 1 tab(s) orally QHS Taking Triamcinolone Acetonide 55 MCG/ACT Aerosol 1 spray in each nostril Nasally Twice a day Taking Ipratropium [place] 0.02 % Solution 2 sprays in each nostril twice daily Inhalation every 8 hrs , Notes to Pharmacist: *Please review and pick correct strength-formulation from PR[employer]US PHARMACE[employer]IC[employer]an options. If intended option is not shown, discontinue and re-order from Quick Search*Not-Taking/PRNNASACORT AQ 55 mcg/inh spray 2 sprays, each nostril intranasally, avoid nasal septum daily IPRATROPIUM BROMIDE NASAL 21 mcg/inh spray 2 spray(s) in each nostril 3 times daily AZELASTINE HYDROCHLORIDE NASAL 137 mcg/inh spray 2 spray(s) intranasally 2 times a day Nasacort Allergy 24HR 55 MCG/ACT Aerosol 2 sprays, each nostril intranasally, avoid nasal septum daily Azelastine HCl 137 MCG/SPRAY Solution 2 spray(s) intranasally 2 times a day Not-Taking/PRN NASACORT AQ 55 mcg/inh spray 2 sprays, each nostril intranasally, avoid nasal septum daily Not-Taking/PRN IPRATROPIUM BROMIDE NASAL 21 mcg/inh spray 2 spray(s) in each nostril 3 times daily Not-Taking/PRN AZELASTINE HYDROCHLORIDE NASAL 137 mcg/inh spray 2 spray(s) intranasally 2 times a day Not-Taking/PRN Nasacort Allergy 24HR 55 MCG/ACT Aerosol 2 sprays, each nostril intranasally, avoid nasal septum daily Not- Taking/PRN Azelastine HCl 137 MCG/SPRAY Solution 2 spray(s) intranasally 2 times a day Objective: * Vitals: Assessment: * Assessment: 1. A llergic rhinitis due to pollen - J30.1 (Primary) 2 . O ther allergic rhinitis - J30.89 3 . A llergic rhinitis due to animal (cat) (dog) hair and dander - J30.81 4 . O ther chronic allergic conjunctivitis - H10.45 Plan: * Treatment: * Procedure Codes: 9 5117 IMMUNOTHERAPY INJECTIONS * Follow Up: 1 Week * Billing Information: * Visit Code: * Procedure Codes: 67562 IMMUNOTHERAPY INJECTIONS. * Sign off status: Completed true * Provider: Arron Stroud MD Date: 0 11/20/2024 Generated for Eldon Malin/Maury on: 0 12/11/2024 10:32 AM CDT History [...]
--- OUTSIDE RECORDS SUMMARY | 2024-12-11 10:32 | XMS_ITS ---
Author Organization [employer] [place] ([address]) Address [address] [place] [address] Care Team Providers Care Director Of Bands Name Role Phone Jared Amezcua Primary Care Provider UnavailLaureen Harris Unavailable [phone] Nikos Stroud Unavailable [phone] REASON FOR VISIT SCIT - Traditional Schedule Allergy Immunotherapy Medications Medication SIG (Take, Route, Frequency, Duration) Notes Start Date End Date Status AUVI-Q 0.3 mg 0.3 mg intramuscularly once for 30 day(s) Active NASAL WASHES N/A as directed intranasally as needed Active SIT (TRADITIONAL) variable per schedule SC per schedule for to be determined Active FEXOFENADINE 180 mg 1 tab(s) orally once a day, PRN for 30 days Active Famotidine 40 mg 1 tab(s) orally 30 mins prior to SCIT for 30 days Active Ipratropium [place] 0.02 % 2 sprays in each nostril twice daily Inhalation every 8 hrs for 90 days *Please review and pick correct strength-formula tion from Branchlyan options. If intended option is not shown, discontinue and re-order from Quick Search* Active Triamcinolone Acetonide 55 MCG/ACT 1 spray in each nostril Nasally Twice a day for 30 days 06/26/2024 Active Azelastine HCl 137 MCG/SPRAY 2 spray(s) intranasally 2 times a day for 30 day(s) Not-Taking Nasacort Allergy 24HR 55 MCG/ACT 2 sprays, each nostril intranasally, avoid nasal septum daily for 30 days Not-Taking Auvi-Q 0.3 mg 0.3 mg intramuscularly once for 30 day(s) Active traZODone HCl 100 MG 1 tab(s) [...] 3 times daily for 90 days Not-Taking Vitamin D3 1250 MCG 1 CAP(S) ORALLY ONCE A WEEK *Please review and pick correct strength-formula tion from TigerText options. If intended option is not shown, discontinue and re-order from Quick Search* Active Fexofenadine HCl 180 MG 1 tab(s) orally once a day, PRN for 30 days Active ALPRAZolam 0.5 MG 1 tab(s) orally Qday, PRN Active Calcium Acetate 667 MG 3 tab(s) orally 3 times a day Active FAMOTIDINE 40 mg 1 tab(s) orally 30 mins prior to SCIT for 30 days 12/27/2023 Active VITAMIN D3 1250 mcg 1 cap(s) orally once a week Active ALPRAZOLAM 0.5 mg 1 tab(s) orally Qday, PRN Active CALCIUM ACETATE 667 mg 3 tab(s) orally 3 times a day Active PROLIA 60 mg/mL as directed subcutaneously every 6 months for 12 month(s) Active TRAZODONE 100 mg 1 tab(s) orally QHS Active Encounters Encounter Location Date Provider Diagnosis [facility] [address] [place] [address] 11/29/2024 Nikos Stroud Allergic rhinitis du e to pollen J30.1 ; Other allergic rhinitis J30.89 ; Allergic rhinitis due to animal (cat) (dog) hair and dander J30.81 and Other chronic allergic conjunctivitis H10.45 Assessments Encounter Date Diagnosis (ICD Code) Assessment Notes Treatment Notes Treatment Clinical Notes Section Notes 11/29/2024 Allergic rhinitis due to pollen (ICD-10 - J30.1) 11/29/2024 Other allergic rhinitis (ICD-10 - J30.89) 11/29/2024 Allergic rhinitis due to animal (cat) (dog) hair and dander (ICD-10 - J30.81) 11/29/2024 Other chronic allergic conjunctivitis (ICD-10 - H10.45) Plan Of Treatment Next Appt Details Follow Up: 1 Week, Reason: Provider Name:Laureen leslie, 01/01/2025 10:30:00 AM, 2022 [facility], [address] [place] [address], [address], Progress Notes * Barb LOPEZ MDOB:1960 (64 yo F)Acc No.[id number]:11/29/2024 SCIT-Aeroallergen Patient: Stacia Barb MCLEAN Provider: Arron Stroud MD :1960 A ge:64 Y S ex:Female Date:11/29/2024 Address:[address] [place], [place] [phone] Pcp:Jared Amezcua Subjective: * Chief Complaints: * [...] *Please review and pick correct strength-formulation from Priceonomicsspan options. If intended option is not shown, [...] each nostril Nasally Twice a day Ipratropium [place] 0.02 % Solution 2 sprays in each nostril twice daily Inhalation every 8 hrs , Notes to Pharmacist: *Please review and pick correct strength-formulation from Priceonomicsspan options. If intended option is not shown, [...] *Please review and pick correct strength-formulation from Branchlyan options. If intended option is not shown, [...] nostril Nasally Twice a day Taking Ipratropium [place] 0.02 % Solution 2 sprays in each nostril twice daily Inhalation every 8 hrs , Notes to Pharmacist: *Please review and pick correct strength-formulation from Branchlyan options. If intended option is not shown, [...] Information: * Visit Code: * Procedure Codes: 78640 IMMUNOTHERAPY INJECTIONS. * Sign off status: Completed true * Provider: Arron Stroud MD Date: 0 11/29/2024 Generated for Eldon Malin/Maury on: 0 12/11/2024 10:31 AM CDT History and Physical Notes * [...]
[2024-12-11] MEDS: IBUPROFEN 600 MG TABLET PO (12:23)
--- NOTE | 2024-12-11 12:34 | ED.LOWEXIN ---
HPI - Extremity Injury (Lower) General Chief Complaint: Extremity Injury, Lower Stated Complaint: right ankle injury Time Seen by Provider: 12/11/24 11:42 History of Present Illness HPI Narrative: Patient is a 64-year-old female with history of osteoporosis who presents ER with right-sided ankle pain. Swelling over lateral malleolus. Was walking down her steps last night and she thought she is on last step but was not she then suffered inversion injury to the ankle. Has pain with bearing weight. No numbness or tingling. Also reports pain to left great toe but there is no swelling or deformity. Related Data Home Medications ?Medication ?Instructions ?Recorded ?Confirmed ?Last Taken ?Type denosumab 60 mg/mL subcutaneous 60 mg subcut [id number] 04/03/21 09/05/24 Unknown History syringe (Prolia) ergocalciferol (vitamin D2) 1,250 50,000 unit PO MONTHLY 10/07/21 09/05/24 Unknown History mcg (50,000 unit) capsule calcium lactate 600 mg PO DAILY 01/12/24 09/05/24 Unknown History Allergies Allergy/AdvReac Type Severity Reaction Status Date / Time clindamycin Allergy Severe Diarrhea Verified 09/05/24 08:09 erythromycin base Allergy Unknown DIARRHEA Verified 09/05/24 08:09 succinylcholine Allergy Unknown Unknown Verified 09/05/24 08:09 Review of Systems Constitutional: Constitutional: Reports no additional constitutional complaints Musculoskeletal: Musculoskeletal: Reports no additional musculoskeletal complaints Integumentary/Breasts: Skin/Breast: Reports system reviewed and no additional complaints, except as docu Neurologic: Reports system reviewed and no additional complaints, except as documented [facility] Past Medical History Medical History Cataract, right eye (~05/30/20) Colon cancer screening (~2017) Colon cancer screening (~2007) Cataract s/p lens replacement Pseudomembranous colitis Allergies Insomnia Age-related osteoporosis without current pathological fracture Anxiety Surgical History Surgical History H/O dilation and curettage (~2015) Family History Family History Father , at age 87 Hypertension Cerebrovascular accident Mother No problems noted. Social History Social History Smoking status: Never smoker Alcohol intake: never Substance use: never Substance use type: does not use Lack of Transportation: No Lack of Food: Never True Current Housing: I Have Housing Concerned About Future Housing: No Difficulty Paying Gas/Electric Bills: No Difficulty Paying for Meds: No Currently Unemployed: No Education: High School Diploma/GED Difficulty w/ Childcare or Family Care: No Living arrangements: alone Occupation/Education: retired Spiritual care concerns: No Agree to blood products: Yes Exam Narrative: GENERAL: Well-appearing, well-nourished, and in no acute distress. HEAD: Normocephalic, atraumatic. ENT: Mucous membranes moist. HEART: Regular rate and rhythm. Normal peripheral pulses.. EXTREMITIES: Normal range of motion. No edema. Ankle swelling on the right side mainly at the lateral malleolus some mild bruising. No point tenderness the bone but tender over the ATFL. Normal toes on left foot. SKIN: Warm, dry, no rash. NEURO: Alert and oriented x3. PSYCH: Normal mood and affect. Course Course Emergency Course: Ankle sprain. Left toe avulsion fracture with which need a postop shoe and crutches. Discharge. Vital Signs Vital signs: Vital Signs Temperature 97.8 F 12/11/24 09:42 Pulse Rate 72 12/11/24 09:42 Respiratory Rate 18 12/11/24 09:42 Blood Pressure 104/65 12/11/24 09:42 Pulse Oximetry 100 12/11/24 09:42 Oxygen Delivery Room Air 12/11/24 09:42 Temperature 97.8 F 12/11/24 09:42 Pulse Rate 72 12/11/24 09:42 Respiratory Rate 18 12/11/24 09:42 Blood Pressure 104/65 12/11/24 09:42 Pulse Oximetry 100 12/11/24 09:42 Oxygen Delivery Room Air 12/11/24 09:42 MDM - Extremity Injury (Lower) Imaging Data Radiologist's impression: ITS Impressions Ankle X-Ray 12/11/24 12:37 IMPRESSION: No acute osseous abnormality of the right ankle. Toe X-Ray 12/11/24 12:39 IMPRESSION: Chip fracture at the base of the proximal phalanx of the left big toe. Discharge Plan Discharge Clinical Impression: Ankle sprain, Fracture of toe Patient Disposition: Home Condition: Stable Instructions: Ankle Sprain (ED), Toe Fracture (ED), P.R.I.C.E. Treatment (ED) Additional Instructions: Bear weight as tolerated with crutches. Take Tylenol and ibuprofen for pain. Follow-up with your primary care doctor. Patient Language: Indian Prescriptions: No Action Prolia 60 mg/mL syringe 60 mg subcut [id number] ergocalciferol (vitamin D2) 1,250 mcg (50,000 unit) capsule 50,000 unit PO MONTHLY naproxen 500 mg tablet 500 mg PO BID PRN (Reason: pain) Qty: 60 0RF calcium lactate 100 mg calcium tablet 600 mg PO DAILY trazodone 100 mg tablet See Rx Instructions .ROUTE .COMPLEX Qty: 90 1RF Dose Instruction: TAKE 1 TABLET BY MOUTH 1 TIME AT BEDTIME Rx Instructions: TAKE 1 TABLET BY MOUTH 1 TIME AT BEDTIME alprazolam 0.5 mg tablet 0.5 mg PO TID PRN (Reason: anxiety) Qty: 80 0RF Follow-up/Referrals: Hazel Blanc APRN [Primary Care Provider] - 1 Week
--- OUTSIDE RECORDS SUMMARY | 2024-12-11 13:43 | XMS_ITS | Encounter Summary ---
Author Organization [facility] Address [address] [place] [address] Phone Care Team Providers Care Mobile Electronics Installer Name Role Phone Hazel Blanc NP Primary Care Provider Encounter Details Date Type Department Care Team (Late st Contact Info) Description 12/11/2024 Telephone [facility] [address] [facility] Medical Office Building [address] [place] [id number] Maribeth Garcia MD 10 [facility] [address] [place] [address] Social History Tobacco Use Types Packs/Day Years [...] on file Legal Sex Female 11:53 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 She is waiting to be seen. She will call us and give us updates. documented in this encounter Plan of Treatment Not on file documented as of this encounter Visit Diagnoses Not on filedocumented in this encounter Care Teams Mobile Electronics Installer Relationship Specialty Start Date End Date Hazel Blanc NP [address] [facility] [address] [place], [place] [id number] PCP - General Nurse Practitioner 08/02/24 documented as of this encounter
--- OUTSIDE RECORDS SUMMARY | 2024-12-11 13:43 | XMS_ITS | Clinical Summary ---
Author Organization [facility] Address [address] [place] [address] Care Team Providers Care Flight Teacher Name Role Phone Hazel Blanc NP Primary Care Provider [phone] Allergies Active Allergy Reactions Criticality Noted Date [...] Encounters Date Type Department Care Team Description 12/11/[address] Medical Office Building [address] [place] [address] Maribeth Garcia MD 09/18/2024 10:00 AM AIRPLANE MECHANIC Infusion [facility] Injection Therapy [address] [facility] 5th [place] [address] [place] [phone] Age-related osteoporosis without current pathological fracture (Primary [...] on file Legal Sex Female 11:53 AM AIRPLANE MECHANIC Gender Identity Female 06/13/2021 4:46 PM CDT [...] 38.6 kg (85 lb) 08/02/2024 10:48 AM AIRPLANE MECHANIC Height 158.1 cm (5' 2.25 ) 08/02/2024 10:48 AM C Body Mass Index 15.42 08/02/2024 10:48 AM AIRPLANE MECHANIC Plan of Treatment Health Maintenance Due Date [...] Read Routine (OP Routine) 08/02/2024 10:47 AM AIRPLANE MECHANIC History of vitamin D deficiency from Last 3 Months or Most Recently Relevant to Health Maintenance Results * Dexa TBS Axial Skeleton Bone Density 1 or more sites (08/02/2024 10:47 AM AIRPLANE MECHANIC) Anatomical Region Laterality Modality Wrist, Body N/A Radiographic Viridiana ging Narrative 08/02/2024 4:42 PM AIRPLANE MECHANIC Patient Name: Barb Piper Date of : 1960 Date of scan: 08/02/2024 Bone mineral density was performed on a HoloDocuSpeak Discovery Densitometer. Based on machine cross-calibration and [...] by the International Society of Clinical Densitometry. [id number] Maribeth Garcia MD IMG DXA PROCEDURES Final Resu lt from Last 3 Months or Most Recently Relevant to Health Maintenance Insurance MEDICARE [facility] [employer] [facility] Member Subscriber Plan / Payer (Ef fective 2019-Present) Name:Barb Piper Relation to Subscriber:Self Name:Veronique Barb Subscriber ID:Not on file Payer ID:[id number] (NAIC) Type:[employer] Address: [address] [place] [id number] MEDICARE [employer] [facility] Care Teams Flight Teacher Relationship Specialty Start Date End Date Hazel Blanc NP [address] [place] [address] PCP - General Nurse Practitioner 08/02/24
--- OUTSIDE RECORDS SUMMARY | 2024-12-11 13:43 | XMS_ITS | Referral Summary ---
Author Organization [facility] Address [address] [place] [address] Care Team Providers Care Speech Communication Professor Name Role Phone Hazel Blanc NP Primary Care Provider Encounters Date Type Department Care Team Description 12/11/2024 Telephone [facility] [address] Medical Office Building [address] [place] [address] Maribeth Garcia MD 09/18/2024 10:00 AM BADGER DISTILLER OPERATOR Infusion [facility] Injection Therapy [address] [facility] 5th [place] [address] [place] [address] Age-related osteoporosis without current pathological [...] on file Legal Sex Female 11:53 AM BADGER DISTILLER OPERATOR Gender Identity Female 06/13/2021 4:46 PM CDT [...] 38.6 kg (85 lb) 08/02/2024 10:48 AM BADGER DISTILLER OPERATOR Height 158.1 cm (5' 2.25 ) 08/02/2024 10:[address] Body Mass Index 15.42 08/02/2024 10:48 AM BADGER DISTILLER OPERATOR Plan of Treatment Not on file Procedures Procedure Name Priority Date/Time Associated Diagnosis Comments DEXA TBS AXIAL SKELETON BONE DENSITY 1 OR MORE SITES Schedule Routine, Read Routine (OP Routine) 08/02/2024 10:47 AM BADGER DISTILLER OPERATOR History of vitamin D deficiency from Last 3 Months or Most Recently Relevant to Health Maintenance Results * Dexa TBS Axial Skeleton Bone Density 1 or more sites (08/02/2024 10:47 AM BADGER DISTILLER OPERATOR) Anatomical Region Laterality Modality Wrist, Body N/A Radiographic Viridiana ging Narrative 08/02/2024 4:42 PM BADGER DISTILLER OPERATOR Patient Name: Barb Piper Date of : 1960 Date of scan: 08/02/2024 Bone mineral density was performed on a [employer] Discovery Densitometer. Based on machine cross-calibration and [...] mineral density scan were prepared by Carine Day)([facility])who is accredited by the International Society of Clinical Densitometry. The overall patient assessment and scan interpretation were performed by Maribeth Garcia M.D. who is certified by the International Society of Clinical Densitometry. [id number] Maribeth Garcia MD IMG DXA PROCEDURES Final Resu lt from Last 3 Months or Most Recently Relevant to Health Maintenance Insurance MEDICARE [facility] [employer] MEDICARE [place] [employer] Care Teams Speech Communication Professor Relationship Specialty Start Date End Date Hazel Blanc NP [address] [place] [address] PCP - General Nurse Practitioner 08/02/24
--- OUTSIDE RECORDS SUMMARY | 2024-12-11 13:43 | XMS_ITS | Encounter Summary ---
Author Organization [facility] Address [address] [place] [address] Phone Care Team Providers Care Photography Coordinator Name Role Phone Jared Amezcua MD Primary Care Provider [phone] Monie Finley MD Primary Care Provider [phone] Moises Blunt DO Primary Care Provider [phone] Hazel Blanc NP Primary Care Provider [phone] Encounter Details Date Type Department Care Team (Late st Contact Info) Description 06/15/2019 Treatment [facility] [address] [facility] Medical Office Building [address] [place] [address] Monie Finley MD [address] [place] [address] Osteoporosis, unspecified osteoporosis type, unspecified pathological fracture presence (Primary Dx) Social History Tobacco Use Types Packs/Day Years Used Date Smoking Tobacco: Former Smokeless Tobacco: Never Alcohol Use Standard Drinks/Week Comments Yes 0 (1 standard drink = 0.6 oz pur e alcohol) Comments Unknown Sex and Gender Information Value Date Recorded Sex Assigned at Not on file Legal Sex Female 11:53 AM 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 Gender Identity Female 06/13/2021 4:46 PM CDT [...] 07/04/2019 documented in this encounter Care Teams Photography Coordinator Relationship Specialty Start Date End Date Jared Amezcua MD [address] [place] [address] PCP - General Family Medicine 06/30/18 07/03/19 Monie Finley MD [address] [place] [address] PCP - General 07/04/19 07/02/22 Moises Blunt DO [address] [place] [address] PCP - General Internal Medicine 07/03/22 08/01/24 Hazel Blanc NP [address] [facility] 1 [facility] 1 [place] [address] PCP - General Nurse Practitioner 08/02/24 documented as of this encounter
[2024-12-11 14:05] VITALS: BP 128/64; PULSE 78; RESP 18; O2SAT 99
== END 2024-12-11 14:01 | disposition home or self-care (01) ==
PROVIDERS: Emergency Provider Emergency Medicine; PCP Nurse Practitioner Family
DX: S92.412A Displaced fracture of proximal phalanx of left great toe, initial encounter for closed fracture (principal); S93.401A Sprain of unspecified ligament of right ankle, initial encounter; F41.9 Anxiety disorder, unspecified; X50.0XXA Overexertion from strenuous movement or load, initial encounter
CPT/HCPCS: 73610; 73660; 99284; A9270

== ENCOUNTER 2024-12-20 15:05 | Outpatient (CLI) | payer MEDICARE, OTHER, SELFPAY ==
--- NOTE | ~2024-12-20 | XR_ITS ---
HISTORY: M25.571 - Pain in right ankle and joints of right foot COMPARISON: 12/11/2024 TECHNIQUE: 3 views of the right ankle were performed FINDINGS: No acute fracture or dislocation. No significant soft tissue swelling. The ankle mortise is preserved. Bone mineralization is age-appropriate. IMPRESSION: No acute fracture or dislocation. Reviewed, dictated and finalized at location A.
== END 2024-12-20 15:06 | disposition home or self-care (01) ==
LOC: MICIMG 15:07
PROVIDERS: PCP Nurse Practitioner Family; Visit Provider Nurse Practitioner Family
DX: M25.571 Pain in right ankle and joints of right foot (principal); S93.401A Sprain of unspecified ligament of right ankle, initial encounter; X58.XXXA Exposure to other specified factors, initial encounter
CPT/HCPCS: 73610

== ENCOUNTER 2025-01-17 11:02 | Outpatient (CLI) | payer MEDICARE, OTHER, SELFPAY ==
--- NOTE | ~2025-01-17 | XR_ITS ---
XR toe 1st LT min 2V Ordering provider: Hazel Blanc APRN History: . S92.402A - Displaced unspecified fracture of left great t... . Comparison: December 11, 2024 FINDINGS: BONES: Fracture at the base of the proximal phalanx of the left big toe medially extending to the franklyn nt space.. JOINT SPACES: Osteoarthritic changes of the first metatarsophalangeal joint. SOFT TISSUES: Normal. IMPRESSION: Fracture of the base of the proximal phalanx of the left big toe. Osteoarthritic changes of the first metatarsophalangeal joint. Reviewed, dictated and finalized at location A.
== END 2025-01-17 11:03 | disposition home or self-care (01) ==
LOC: MICIMG 11:04
PROVIDERS: PCP Nurse Practitioner Family; Visit Provider Nurse Practitioner Family
DX: S92.412A Displaced fracture of proximal phalanx of left great toe, initial encounter for closed fracture (principal); X58.XXXA Exposure to other specified factors, initial encounter; M19.072 Primary osteoarthritis, left ankle and foot
CPT/HCPCS: 73660

== ENCOUNTER 2025-02-26 08:30 | Outpatient (RCR) | payer MEDICARE, OTHER, SELFPAY ==
--- NOTE | 2025-01-22 12:03 | OPREHPOC ---
Outpatient Therapy Plan of Care This is a Multidisciplinary Plan of Care that may contain components documented by all disciplines (PT, OT, and ST.) PT Problem 1 PT Problem #1 Knowledge Deficit PT Goal 1 Goal / Goal Update Pt. to be independent with HEP for improved self- reliance of symptom management. Target Visit 4 PT Problem 2 PT Problem #2 Pain PT Goal 1 Goal / Goal Update Pt. to reports pain no >=2/10 at its worst when taking first step out of bed for 1 or more consecutive weeks. Target Visit 8 PT Problem 3 PT Problem #3 Impaired Range of Motion PT Goal 1 Goal / Goal Update Pt. to improve R ankle dorsiflexion ROM to 5 degrees to improve flexibility required for gait an stair negotiation. Target Visit 8 PT Problem 4 PT Problem #4 Impaired Strength PT Goal 1 Goal / Goal Update Pt. to improve R ankle strength to >=4/5 for improved strength required during ADLs. Target Visit 8 PT Problem 5 PT Problem #5 Impaired Balance PT Goal 1 Goal / Goal Update Pt. to hold R single limb stance balance for >=15 sec for decreasing fall risk. Target Visit 8
--- NOTE | 2025-01-22 12:03 | PTOPEVAL1 ---
Assessment and note entered by Zee Ball, PT Evaluation Information Assessment Status Evaluation ICD-10 Condition Codes (PT) Pain in right ankle and joints of right foot M25. 571 Onset December 10, 2024 Subjective Information Pt has fallen twice in the last 6 months. She misses the bottom step in her house and will roll her ankle. She has a small break in the big toe of her left foot but the sprain is on her right. She reports no issues with her left foot. Her primary complaint is tenderness and tingling in the bottom break of her R foot. She is very active with light weight training, baby sitting her grandkids and caring for her elderly mother. She reports the tenderness gets worse with prolonged walking or standing when barefoot. When she first gets up in the morning she can feel a rolling sensation under her foot. If she wears a wrap around her foot and shoes she has no difficulties. She just put new inserts into her shoes for plantar fasciitis. She is performing the stairs non-reciprocal due to fear of falling again. She wants to be able to mow her grass and go shopping at the stores without pain. She has been trying to wean off of Naproxen this last week. Reported Pain Level Pain Score 0: Self Report Assessment PT Clinical Summary Pt is a 64 year old female who presents to physical therapy with a primary complaint of R foot pain since 12/10/24. Pt demonstrates ankle weakness, pain worse with initial weight bearing, decreased mobility, and gait deficit that limit their ability to perform ADLs. Pt will benefit from skilled physical therapy to address the above listed deficits and return to PLOF. HEP instructed and written handout provided, EX tolerated well with no adverse effects to note post-session. Pt was educated on importance of adherence to HEP. Pt was also educated on anatomy, prognosis, home modalities, orthotics, and PT POC . Plan of Care Interventions Check Out for Orthotic/Prosthetic,Electrical Stimulation,Gait Training,Hot Pack/Cold Pack, Manual Therapy,Neuro Re-education,Patient/ Caregiver Education,Therapeutic Activities, Therapeutic Exercise,Other Other Interventions dry needling, fluidotherapy PT Services Indicated Yes Treatment Frequency and 2x/wk for 8 visits Duration These treatments will address the objective and functional deficits as defined above. The patient will be advanced safely and appropriately in order for the patient to progress towards his/her prior level of function. Additional exercises will be introduced and as well as a comprehensive home exercise program upon discharge, if needed, ?to ensure carryover of functional gains achieved in the clinic. This treatment plan has been reviewed and agreement upon by the patient.
--- NOTE | 2025-02-26 09:36 | OPREHPOC ---
Outpatient Therapy Plan of Care This is a Multidisciplinary Plan of Care that may contain components documented by all disciplines (PT, OT, and ST.) PT Problem 1 PT Problem #1 Knowledge Deficit PT Goal 1 Goal / Goal Update Pt. to be independent with HEP for improved self- reliance of symptom management. Target Visit 4 Progress Met PT Problem 2 PT Problem #2 Pain PT Goal 1 Goal / Goal Update Pt. to reports pain no >=2/10 at its worst when taking first step out of bed for 1 or more consecutive weeks. Target Visit 8 Progress Met PT Problem 3 PT Problem #3 Impaired Range of Motion PT Goal 1 Goal / Goal Update Pt. to improve R ankle dorsiflexion ROM to 5 degrees to improve flexibility required for gait an stair negotiation. Target Visit 8 Progress Met PT Problem 4 PT Problem #4 Impaired Strength PT Goal 1 Goal / Goal Update Pt. to improve R ankle strength to >=4/5 for improved strength required during ADLs. Target Visit 8 Progress Met PT Problem 5 PT Problem #5 Impaired Balance PT Goal 1 Goal / Goal Update Pt. to hold R single limb stance balance for >=15 sec for decreasing fall risk. Target Visit 8 Progress Met
--- NOTE | 2025-02-26 09:36 | PTOPDC ---
Assessment and note entered by Joe Blanc, PT Evaluation Information Assessment Status Discharge ICD-10 Condition Codes (PT) Pain in right ankle and joints of right foot M25. 571 Onset December 10, 2024 Subjective Information Reports that overall she is feeling better. She has started wearing arch supports which she is unsure if they help. She was instructed to avoid flat shoes. She has continued to work on ankle stability. No new concerns this date but feels tat she is still occasionally inflamed. Reported Pain Level Pain Score 0: Self Report Assessment PT Clinical Summary Patient has met all objective goals for therapy at this time. Patient is compliant and independent with HEP and suitable for discharge at this time. She continues to have some apprehension but has completed full gait cycle gnosticism. Plan of Care PT Services Indicated Yes
== END 2025-02-26 11:08 | disposition home or self-care (01) ==
LOC: ANHPT 08:30
PROVIDERS: PCP Nurse Practitioner Family; Visit Provider Nurse Practitioner Family
DX: S93.401A Sprain of unspecified ligament of right ankle, initial encounter (principal); M72.2 Plantar fascial fibromatosis; M81.0 Age-related osteoporosis without current pathological fracture
CPT/HCPCS: 97110; 97112; 97140; 97161; 97530

== ENCOUNTER 2025-07-16 09:58 | Outpatient (CLI) | payer MEDICARE, OTHER, SELFPAY ==
--- NOTE | ~2025-07-16 | MM_ITS ---
EXAMINATION: MM screening cole BI w sammy HISTORY: Screening TECHNIQUE: Craniocaudal and mediolateral oblique 3-D tomosynthesis images were obtained and synthetic 2-D images were generated. CAD analysis was submitted and interpreted. COMPARISON: Comparison to multiple prior studies sequentially, with oldest reviewed study dated 02/26/2020. BREAST PARENCHYMAL COMPOSITION: Dense: The breasts are extremely dense, which lowers the sensitivity of mammography. FINDINGS: There is no evidence of suspicious mass, calcification, or architectural distortion to suggest malignancy in either breast. There has been no suspicious interval change. IMPRESSION: 1. No mammographic evidence of malignancy. 2. Recommend routine screening mammography in one year. BI-RADS Category 1: Negative Reviewed, dictated and finalized at location I. IFIED MASTER SAFECRACKER
--- OUTSIDE RECORDS SUMMARY | 2025-07-16 11:04 | XMS_ITS | Clinical Summary ---
Author Organization [facility] Address [address] [place] [address] Care Team Providers Care Vocational Training Instructor Name Role Phone Hazel Blanc NP Primary Care Provider [phone] Allergies Active Allergy Reactions Criticality Noted Date [...] unit capsuleIndicati ons:History of vitamin D deficiency Take 1 capsule (50,000 Units total) by mouth every 30 (thirty) days 12 capsule 03/27/2025 Active Active Problems Problem Noted Date Diagnosed Date Chronic rhinitis 07/02/2018 Osteoporosis 07/02/2018 Family History Medical History Relation Name Comments [...] on file Legal Sex Female 11:53 AM HORTICULTURE/FLORICULTURE TEACHER Gender Identity Female 06/13/2021 4:46 PM CDT Sexual Orientation Straight 02/17/2022 10 :07 AM CDT Last Filed Vital Signs Vital Sign Reading Time Taken Comments Blood Pressure 100/71 03/26/2025 10:50 AM CDT Pulse 73 03/26/2025 10:50 AM CDT Temperature 36.6 C (97.8 F) 03/26/2025 10:50 AM CDT Respiratory Rate 18 03/26/2025 10:50 AM CDT Oxygen Saturation 100% 03/26/2025 10:50 AM CDT Inhaled Oxygen Concentration - - Weight 38.6 kg (85 lb) 08/02/2024 10:48 AM HORTICULTURE/FLORICULTURE TEACHER Height 158.1 cm (5' 2.25) 08/02/2024 10:[address] Body Mass Index 15.42 08/02/2024 10:48 AM HORTICULTURE/FLORICULTURE TEACHER Plan of Treatment Health Maintenance Due Date Last Done Comments Colon Cancer Screening-Colonoscopy 1960 Depression Screening 1960 Fall Risk Assessment 1960 Hepatitis C Screening 1960 DTaP/Tdap/Td Vaccine (1 - Tdap) 1969 Hepatitis B Screening 1976 Pneumococcal vaccine 65+ (1 of 1 - PCV) 2008 Zoster Vaccine (1 of 2) 2008 Breast Cancer Screening-Mammogram 04/02/2023 04/02/2022, 03/20/2021, 02/26/2020 Well Visit 65+ 2023 Influenza Vaccine (#1) 2025 05/25/2019 Osteoporosis Screening-Bone Density Scan 08/02/2026 08/02/2024, 07/23/2023, 07/03/2022, Additional history exists Procedures Procedure Name Priority Date/Time Associated Diagnosis Comments DEXA TBS AXIAL SKELETON BONE DENSITY 1 OR MORE SITES Schedule Routine, Read Routine (OP Routine) 08/02/2024 10:47 AM HORTICULTURE/FLORICULTURE TEACHER History of vitamin D deficiency from Last 3 Months or Most Recently Relevant to Health Maintenance Results * Dexa TBS Axial Skeleton Bone Density 1 or more sites (08/02/2024 10:47 AM HORTICULTURE/FLORICULTURE TEACHER) Anatomical Region Laterality Modality Wrist, Body N/A Radiographic Viridiana ging Narrative 08/02/2024 4:42 PM HORTICULTURE/FLORICULTURE TEACHER Patient Name: Barb Piper Date of : 1960 Date of scan: 08/02/2024 Bone mineral density was performed on a [employer] Discovery Densitometer. Based on machine cross-calibration and [...] mineral density scan were prepared by Carine Day)([facility])who is accredited by the International Society of Clinical Densitometry. The overall patient assessment and scan interpretation were performed by Maribeth Garcia M.D. who is certified by the International Society of Clinical Densitometry. [id number] Maribeth Garcia MD IM DXA PROCEDURES Final Resu lt from Last 3 Months or Most Recently Relevant to Health Maintenance Insurance MEDICARE [facility] [place] MEDICARE [facility] Care Teams Vocational Training Instructor Relationship Specialty Start Date End Date Hazel Blanc NP [address] [facility] [address] [place] [address] PCP - General Nurse Practitioner 08/02/24
--- OUTSIDE RECORDS SUMMARY | 2025-07-16 11:04 | XMS_ITS | Encounter Summary ---
Author Organization [facility] Address [address] [place] [address] Phone Care Team Providers Care Body Worker Name Role Phone Hazel Blanc NP Primary Care Provider [phone] Encounter Details Date Type Department Care Team (Late st Contact Info) Description 12/20/2024 Treatment [facility] [address] [place] [address] Medical Office Building [address] [place] [address] Prasad Garcia Social History Tobacco Use Types Packs/Day Years [...] on file Legal Sex Female 11:53 AM 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
--- OUTSIDE RECORDS SUMMARY | 2025-07-16 11:04 | XMS_ITS | Encounter Summary ---
Author Organization [facility] Address [address] [place] [address] Phone Care Team Providers Care Sweeper Driver Name Role Phone Hazel Blanc NP Primary Care Provider [phone] Encounter Details Date Type Department Care Team (Late st Contact Info) Description 12/20/2024 Treatment [facility] [address] [facility] Medical Office Building [address] [place] [address] Maribeth Garcia MD [address] [place] [address] [address] [place] [address] Social History Tobacco Use Types Packs/Day Years [...] on file 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
--- OUTSIDE RECORDS SUMMARY | 2025-07-16 11:04 | XMS_ITS | Encounter Summary ---
Author Organization [facility] Address [address] [place] [address] Phone Care Team Providers Care Director Alumni Relations Name Role Phone Hazel Blanc NP Primary Care Provider [phone] Encounter Details Date Type Department Care Team (Late st Contact Info) Description 12/20/2024 Treatment [facility] Health [address] 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
--- OUTSIDE RECORDS SUMMARY | 2025-07-16 11:04 | XMS_ITS | Encounter Summary ---
Author Organization [facility] Address [address] [place] [address] Phone Care Team Providers Care Control Systems Engineer Name Role Phone Jared Amezcua MD Primary Care Provider [phone] Monie Finley MD Primary Care Provider [phone] Moises Blunt DO Primary Care Provider [phone] Hazel Balnc NP Primary Care Provider [phone] Encounter Details Date Type Department Care Team (Late st Contact Info) Description 06/15/2019 Treatment [facility] Health [address] [place] [address] Medical Office Building [address] [place] [address] Monie Finley MD [address] [place] [address] Osteoporosis, unspecified osteoporosis type, unspecified pathological fracture presence (Primary Dx) Social History Tobacco Use Types Packs/Day Years Used Date Smoking Tobacco: Former Smokeless Tobacco: Never Alcohol Use Standard Drinks/Week Comments Yes 0 (1 standard drink = 0.6 oz pur e alcohol) Comments Unknown Sex and Gender Information Value Date Recorded Sex Assigned at Not on file 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
== END 2025-07-16 09:59 | disposition home or self-care (01) ==
LOC: ANHFOHIMG 09:59
PROVIDERS: PCP Nurse Practitioner Family; Visit Provider Nurse Practitioner Family
DX: Z12.31 Encounter for screening mammogram for malignant neoplasm of breast (principal)
CPT/HCPCS: 77063; 77067